=== PATIENT | male | born 1970 | race Caucasian/White ===

== ENCOUNTER → 2017-01-12 | Outpatient (CLI) | payer BC ==
[2017-01-12] VITALS (10 sets, daily range): BP systolic 107–132; BP diastolic 67–89
[~2017-01-12] VITALS: Ht 190.5 cm; Wt 95.3 kg
[~2017-01-12] MED LIST: AMIT25TA9 PO; CELE50CA PO; GABA600T2 PO; HYDROcodone/APAP 5 MG/325 MG (LORTAB) TAB PO PRN; LIDOCAINE 1% INJ 20 ML (XYLOCAINE) VIAL INJ ONE; LIDOCAINE 1% INJ 20 ML (XYLOCAINE) VIAL ONE; MIDAZOLAM 10 MG/2 ML (VERSED) VIAL IVP PRN; MIDAZOLAM 2 MG/2 ML (VERSED) VIAL ONE; fentaNYL INJECTION 100 MCG/2 ML AMP IVP PRN; fentaNYL INJECTION 100 MCG/2 ML AMP ONE
[2017-01-12 08:50] LABS: MEAN PLATELET VOLUME 10.9 FL (7.4-10.4); RED BLOOD COUNT 5.21 10^6/uL (4.35-5.85); RED CELL DISTRIBUTION WIDTH 12.7 % (10.0-14.5); WHITE BLOOD COUNT 5.1 10^3/uL (4.3-11.0)
[2017-01-12 08:58] LABS: PROTHROMBIN TIME PATIENT 12.5 SEC (12.2-14.7)
--- NOTE | 2017-01-12 09:40 | Conscious Sedation/ASA ---
Conscious Sedation Pre-Proced Time Reviewed: 09:00 ASA Class: 2 Airway Mallampati Classification: ([place] appropriate class) I. II. III, IV Lungs Heart ASA score ASA 1: a normal healthy patient ASA 2: a patient with a mild systemic disease (mid diabetes, controlled hypertension, obesity ASA 3: a patient with a severe systemic disease that limits activity (angina , COPD, prior Myocardial infarction) ASA 4: a patient with an incapacitating disease that is a constant threat to life (CHF, renal failure) ASA 5: a moribund patient not expected to survive 24 hrs. (ruptured aneurysm) ASA 6: a declared brain patient whose organs are being harvested. For emergent operations, add the letter E after the classification Grade 2 Sedation Plan: Analgesia Note The patient is an appropriate candidate to undergo the planned procedure, sedation, and anesthesia. The patient immediately re-assessed prior to indication. RENNY OLVERA MD Jan 12, 2017 09:40
--- NOTE | 2017-01-12 11:08 | Diagnostic Imaging Report ---
EXAMINATION: US-guided core biopsy-liver. INDICATION: Hepatitis C. Current history and physical and other medical records are reviewed prior to the procedure. CONSENT: Informed consent was obtained from the patient. The risks, benefits, potential complications and alternatives were reviewed and all questions answered to the patient's satisfaction. The patient's vital signs, cardiac rhythm, and pulse oximetry with observed throughout the procedure by qualified nursing personnel. Sedation/medications: Conscious sedation with Versed and fentanyl administered intravenously. Sedation time is 30 minutes. FINDINGS: Minimal heterogeneity in the liver parenchyma with no focal mass. PROCEDURE: After maximal sterile barrier technique preparation and draping, 1% lidocaine was utilized for local anesthesia. With the patient in left-sided the position, and via right intercostal approach, a 17-gauge guide needle is introduced into the right hepatic lobe under live ultrasound guidance. After confirming adequate positioning with saved ultrasound images, multiple 18 gauge core biopsy specimens were obtained. Gelfoam injected in the tract as the guide needle was removed The patient tolerated the procedure well with no immediate complications. IMPRESSION: Successful US-guided core biopsy of liver parenchyma taken from the right hepatic lobe. Dictated by: Dictated on workstation # [id number]
== END ==
LOC: RAD 07:38
PROVIDERS: ATTEND Surgery Pediatric Surgery
DX: B18.2 Chronic viral hepatitis C (principal)
CPT/HCPCS: 36415; 76942; 85027; 85610; 85730; 88307; 88313

== ENCOUNTER 2018-04-21 12:10 | Emergency (ER) | payer SELFPAY ==
[~2018-04-21] VITALS: Ht 190.5 cm; Wt 98.0 kg
[~2018-04-21 12:10] MED LIST changes: +ACHD5005; +CYCL10TA9; -HYDROcodone/APAP 5 MG/325 MG (LORTAB) TAB PO PRN; -LIDOCAINE 1% INJ 20 ML (XYLOCAINE) VIAL INJ ONE; -LIDOCAINE 1% INJ 20 ML (XYLOCAINE) VIAL ONE; -MIDAZOLAM 10 MG/2 ML (VERSED) VIAL IVP PRN; -MIDAZOLAM 2 MG/2 ML (VERSED) VIAL ONE; +PRD20T; -fentaNYL INJECTION 100 MCG/2 ML AMP IVP PRN; -fentaNYL INJECTION 100 MCG/2 ML AMP ONE
--- OUTSIDE RECORDS SUMMARY | 2018-04-21 12:16 | XMS REPORT ---
Author Author BHARGAVI Mehta Organization [facility] Address [address] [place] [address] Care Team Providers Care Ammonia Refrigeration Worker Name Role Phone BHARGAVI Mehta Unavailable PROBLEMS Type Condition ICD9-CM Code JRU34-DA Code Onset Dates Condition Status SNOMED Code Problem Other chronic pain G89.29 Active 75226488 Problem GERD (gastroesophageal reflux disease) K21.9 Active 512232978 Problem H. pylori infection A04.8 Active 2931758 ALLERGIES No Known Allergies ENCOUNTERS Encounter Location Date Diagnosis [facility] [address] [address] March, [facility] [address] [address] Feb, Low back pain M54.5 and Other chronic pain G89.29 [facility] [address] [address] Feb, Low back pain M54.5 and Other chronic pain G89.29 [facility] [address] [place] [id number] [place] [phone] Oct, Acute nasopharyngitis J00 and Acute non-recurrent maxillary sinusitis J01.00 [facility] [address] [address] Sep, Lumbar pain M54.5 [facility] [address] [address] 05 Jul, 2017 GERD (gastroesophageal reflux disease) K21.9 [facility] [address] [place] [address] Nov, Sore throat J02.9 and Pharyngitis, unspecified etiology J02.9 [facility] [address] [facility] [id number] [place] [address] 14 Apr, 2016 Unspecified abdominal pain R10.9 and Helicobacter pylori ( H. pylori) A04.8 [facility] [address] [facility] [id number] [place] [address] 04 Feb, 2016 H. pylori infection A04.8 and Abdominal pain R10.9 IMMUNIZATIONS No Known Immunizations SOCIAL HISTORY Never Assessed REASON FOR VISIT nausea/diarrhea hx of h pylori JStrasserRN PLAN OF CARE Activity Details Follow Up prn Reason: VITAL SIGNS Height 75 in 2017-08-03 Weight 211.0 lbs 2017-08-03 Temperature 97.8 degrees Fahrenheit 2017-08-03 Heart Rate 64 bpm 2017-08-03 Respiratory Rate 20 2017-08-03 BMI 26.37 kg/m2 2017-08-03 Blood pressure systolic 120 mmHg 2017-08-03 Blood pressure diastolic 80 mmHg 2017-08-03 MEDICATIONS Medication Instructions Dosage Frequency Start Date End Date Duration Status Gabapentin 300 MG Orally Three times a day 1 capsule 8h Active Sucralfate 1 GM Orally QID 1 tablet on an empty stomach before every meal and before bed 6h Jul, Jul, 14 days Active Omeprazole 40 MG Orally Once a day 1 capsule 24h Jul, 30 day(s ) Active Celebrex 200 MG Orally Once a day 1 capsule with food 24h Active Amitriptyline HCl 100 MG Orally Once a day 1 tablet 24h Active RESULTS No Results PROCEDURES Procedure Date Ordered Result Body Site IMMUNOASSAY,INFECTIOUS AGENT Aug 03, 2017 INSTRUCTIONS MEDICATIONS ADMINISTERED No Known Medications MEDICAL (GENERAL) HISTORY Type Description Date Medical History rheumatoid arthritis Surgical History Hep C Hospitalization History Lyme Disease
--- NOTE | 2018-04-21 13:01 | ED Back Pain ---
General Chief Complaint: Trauma-Non Activation Stated Complaint: FELL OFF OF PORCH,BACK PAIN Nursing Triage Note: PT REPORTS FALLING BACKWARDS OFF OF PORCH RAILING ON TO CONCRETE PATIO. PT REPORTS HIT BACK OF HEAD, KNOCKING OFF GLASSES AND HAT, THEN LOWER BACK; DENIES LOC, REPORTS INCREASING STIFFNESS FROM NECK TO COCCYX. PT ABD INTO EXAM ROOM SLOWLY IN VISIBLE DISCOMFORT Nursing Sepsis Screen: No Definite Risk (EDIN MORGAN STUDENT) History of Present Illness Date Seen by Provider: April 21, 2018 Time Seen by Provider: 12:56 Initial Comments The patient is a 47-year-old male who presents to emergency room with low back pain, he reports falling backwards off of his porch railing and landing on a concrete patio. He reports landing flat on the patio hitting his head but denies LOC, dizziness, neck pain, nausea or vomiting, and states that he has significant back pain all the time which she takes amitriptyline, Flexeril, and hydrocodone 3 times a day. He reports taking all 3 of us hydrocodone's without relief of pain and reports that pain in his lower back is worse than normal and sends spasms up his back. Patient denies loss of bowel or bladder, saddle paresthesia. Location: Lumbar Spine Timing/Duration: 1-3 Hours Severity: Mild Pain/Injury Location: Back Radiation: Other (upper back) Method of Injury: Fall Modifying Factors: Improves With Immobilization; Worse With Movement; Improves With Rest Associated Symptoms: muscle spasms, lower back pain (EDIN MORGAN STUDENT) Allergies and Home Medications Allergies Coded Allergies: No Known Drug Allergies (Unverified , 01/12/17) Home Medications Amitriptyline HCl 25 Mg Tablet, 25 MG PO HS, (Reported) Celecoxib 50 Mg Capsule, 50 MG PO BID, (Reported) Gabapentin 600 Mg Tablet, 600 MG PO DAILY, (Reported) Patient Home Medication List Home Medication List Reviewed: Yes (EDIN MORGAN STUDENT) Home Medication List Reviewed: Yes (LUIS ALBERTO GAVIN APRN) Constitutional: see HPI EENTM: no symptoms reported Respiratory: no symptoms reported, see HPI Cardiovascular: see HPI Gastrointestinal: see HPI Genitourinary: see HPI Musculoskeletal: back pain, muscle cramps, muscle twitching Skin: see HPI Psychiatric/Neurological: See HPI (EDIN MORGAN STUDENT) Past Mtfpgkf-Ybgpjr-Rhqqdb Hx Past Med/Social Hx: Reviewed Nursing Past Med/Soc Hx (EDIN MORGAN STUDENT) Patient Social History Alcohol Use: Denies Use Recreational Drug Use: No Smoking Status: Current Everyday Smoker 2nd Hand Smoke Exposure: No Recent Foreign Travel: No Contact w/Someone Who Travel: No Recent Infectious Disease Expo: No Recent Hopitalizations: No (EDIN MORGAN STUDENT) Seasonal Allergies Seasonal Allergies: Yes (EDIN MORGAN STUDENT) Past Medical History Surgeries: Yes (LIVER BX) Respiratory: No Cardiac: No Neurological: No Genitourinary: No Gastrointestinal: Yes (HEPATITIS C) Hepatitis Musculoskeletal: Yes Chronic Back Pain Endocrine: No HEENT: No Cancer: No Psychosocial: No Integumentary: No Blood Disorders: Yes (HEP C) (EDIN MORGAN STUDENT) Family Medical History Reviewed Nursing Family Hx (EDIN MORGAN STUDENT) Physical Exam Vital Signs Vital Signs - First Documented 04/21/18 12:34 Pulse 78 Resp 18 B/P (MAP) 139/89 (106) Pulse Ox 97 O2 Delivery Room Air (LUIS ALBERTO GAVIN APRN) Vital Signs Capillary Refill : Less Than 3 Seconds (EDIN MORGAN STUDENT) General Appearance: No Apparent Distress, WD/WN HEENT: PERRL/EOMI, TMs Normal, Normal ENT Inspection, Pharynx Normal Neck: Full Range of Motion, Normal Inspection, Non Tender, Supple Cardiovascular: Regular Rate, Rhythm, No Edema, No Gallop, No JVD, No Murmur, Normal Peripheral Pulses Respiratory: Chest Non Tender, Lungs Clear, Normal Breath Sounds, No Accessory Muscle Use Gastrointestinal: Normal Bowel Sounds, No Organomegaly, No Pulsatile Mass, Non Tender Back: Normal Inspection, No CVA Tenderness, No Vertebral Tenderness, Decreased Range of Motion (increased pain with range of motion), Muscle Spasm Extremity: Normal Capillary Refill, Normal Inspection, Normal Range of Motion, Non Tender, No Calf Tenderness, No Pedal Edema Neurologic/Psychiatric: Alert, Oriented x3, Normal Mood/Affect Skin: Normal Color, Warm/Dry Lymphatic: No Adenopathy (EDIN MORGAN STUDENT) Progress/Results/Core Measures Results/Orders My Orders Orders - LUIS ALBERTO GAVIN APRN Ct Lumbar Spine Wo (04/21/18 12:55) Ketorolac Injection (Toradol Injection) (04/21/18 13:00) Orphenadrine Injection (Norflex Injectio (04/21/18 13:00) (LUIS ALBERTO GAVIN APRN) Vital Signs/I&O 04/21/18 12:34 Pulse 78 Resp 18 B/P (MAP) 139/89 (106) Pulse Ox 97 O2 Delivery Room Air (LUIS ALBERTO GAVIN APRN) Blood Pressure Mean: 106 Departure Communication (Admissions) 1346- I've seen the patient as well. His pain is midline lumbar spine an exacerbation of his chronic pain. No different than normal only more intense. We will give Toradol and Norflex and discharged home with naproxen. He has hydrocodone and Flexeril. (LUIS ALBERTO GAVIN APRN) Impression Primary Impression: Back strain Additional Impression: Acute exacerbation of chronic low back pain Disposition: HOME, SELF-CARE Condition: Stable Departure-Patient Inst. Decision time for Depature: 13:39 (LUIS ALBERTO GAVIN APRN) Referrals: RG MORELOS MD (PCP/Family) Primary Care Physician Patient Instructions: Low Back Pain (DC) Add. Discharge Instructions: 1.medication as directed. If you require strong pain medication follow-up with your primary care provider 2.All discharge instructions reviewed with patient and/or family. Voiced understanding. Scripts Naproxen (Naprosyn) 500 Mg Tablet 500 MG PO BID, #20 TAB Prov: LUIS ALBERTO GAVIN APRN 04/21/18 EDIN MORGAN STUDENT April 21, 2018 13:01 LUIS ALBERTO GAVIN APRN April 21, 2018 13:44
--- NOTE | 2018-04-21 13:37 | Diagnostic Imaging Report ---
PROCEDURE: CT lumbar spine without contrast. TECHNIQUE: Multiple contiguous axial images were obtained through the lumbar spine without the use of intravenous contrast. Sagittal and coronal reformations were then performed. INDICATION: Fall with numbness and tingling in the lower extremities. Comparison is made with prior CT lumbar spine from 10/07/2017. FINDINGS: Curvature and alignment of the lumbar spine is normal. The vertebral body heights are maintained. No acute fracture is identified. There is some degenerative disc disease L3-L4 level with marginal spurring present. Bony canal appears to be patent at all levels. There continues to be some neural foraminal narrowing bilaterally L5-S1. The paraspinous tissues are unremarkable. IMPRESSION: Stable CT lumbar spine. No acute bony abnormality is detected. Dictated by: Dictated on workstation # [id number]
[2018-04-21] MEDS ORDERED: NAPR-1071 PO (13:46)
[2018-04-21] MEDS: KETOROLAC 60 MG/2 ML VIAL IM ONE (13:57)
[2018-04-21] MEDS: ORPHENADRINE 60 MG/2 ML (NORFLEX) AMP IM ONE (13:57)
[2018-04-21 14:07] VITALS: BP 117/69
== END 2018-04-21 14:10 | disposition home or self-care (01) ==
LOC: EDUNIT# 12:10 → ER 12:12
DX: S39.012A Strain of muscle, fascia and tendon of lower back, initial encounter (principal); M54.5 Low back pain; G89.29 Other chronic pain; B19.20 Unspecified viral hepatitis C without hepatic coma; F17.200 Nicotine dependence, unspecified, uncomplicated; W13.8XXA Fall from, out of or through other building or structure, initial encounter; W22.09XA Striking against other stationary object, initial encounter
CPT/HCPCS: 72131; 96372

== ENCOUNTER 2018-04-26 19:05 | Emergency (ER) | payer SELFPAY ==
[~2018-04-26] VITALS: Ht 190.5 cm; Wt 99.8 kg
[~2018-04-26 19:05] MED LIST changes: +NAPR-1071 PO
[2018-04-26] MEDS ORDERED: KETOROLAC 30 MG/ML VIAL IVP STA (19:20)
[2018-04-26] MEDS ORDERED: ORPHENADRINE 60 MG/2 ML (NORFLEX) AMP IV STA (19:20)
--- NOTE | 2018-04-26 20:08 | Diagnostic Imaging Report ---
PROCEDURE: CT lumbar spine without contrast. TECHNIQUE: Multiple contiguous axial images were obtained through the lumbar spine without the use of intravenous contrast. Sagittal and coronal reformations were then performed. INDICATION: Fall. Back pain There is normal height and alignment of the lumbar vertebral bodies. Disc spaces are well-maintained. There is mild degenerative changes at L3-4. Focal disc herniation is not evident at any level. There is no bony stenosis. There is no fracture or other acute abnormality. IMPRESSION: No acute abnormality is seen with no change from the prior study from 04/21/18. Dictated by: Dictated on workstation # [id number]
--- NOTE | 2018-04-26 20:18 | Diagnostic Imaging Report ---
PROCEDURE: CT pelvis without contrast. TECHNIQUE: Multiple contiguous axial images were obtained through the pelvis without the use of intravenous contrast. Sagittal and coronal reformations were performed. INDICATION: Fall. Pelvic pain There is no fracture, dislocation or other acute bony abnormality. The sacroiliac joints and symphysis pubis are not widened. No free air or free fluid in the pelvis is seen. There is no muscle mass or edema seen. IMPRESSION: Normal CT of the pelvis. Dictated by: Dictated on workstation # [id number]
[2018-04-26] MEDS ORDERED: RX-TRAMADOL 50 MG (ULTRAM) TAB PPK#4 PO STA (20:41)
--- NOTE | 2018-04-26 20:43 | ED Back Pain ---
General Chief Complaint: Back Problems Stated Complaint: BACK PAIN Nursing Triage Note: PT TO ED 7 W/ S.O. FOR C/O LOWER BACK PAIN ONSET X5 DAYS. PT REPORTS FELL FROM HIS PORCH AT THAT TIME, WAS SEEN IN THIS ED, TREATED AT THAT TIME BUT DENIES IMPROVEMENT. BRUISING NOTED TO LOWER BACK AT THIS TIME. NO OTHER C/O VOICED Nursing Sepsis Screen: No Definite Risk Source of Information: Patient, Old Records History of Present Illness Date Seen by Provider: April 26, 2018 Time Seen by Provider: 19:15 Initial Comments PT ARRIVES VIA POV FROM HOME PT WAS SEEN IN ER LAST WEEK 04/21/18 AFTER FALLING BACKWARDS OFF A PORCH AND LANDING ON HIS BACK PT HAD CT OF LUMBAR SPINE WHICH WAS REPORTED NO ACUTE PROCESS. WAS GIVEN INJECTIONS OF TORADOL AND NORFLEX AND SENT HOME WITH RX FOR NAPROXEN PT HAS HISTORY OF CHRONIC BACK PAIN AND TAKES HYDROCODONE 5/325 1 PILL TID, FLEXERIL AND AMITRIPTYLINE FOR THESE PROBLEMS PT STATES PAIN IS GETTING WORSE, AND IS MUCH WORSE WITH COUGHING, SNEEZING, BLOWING NOSE, OR WITH MOVEMENTS AND CANNOT SIT OR LAY ON BACK C/O PAIN RADIATING DOWN RIGHT LEG NO PROBLEMS WITH BOWEL OR BLADDER FUNCTION NO PARESTHESIAS OR MOTOR DEFICITS PCP: DR. MORELOS, NEXT ROUTINE APPOINTMENT 05/02/18 Allergies and Home Medications Allergies Coded Allergies: No Known Drug Allergies (Unverified , 01/12/17) Home Medications Amitriptyline HCl 25 Mg Tablet, 25 MG PO HS, (Reported) Celecoxib 50 Mg Capsule, 50 MG PO BID, (Reported) Gabapentin 600 Mg Tablet, 600 MG PO DAILY, (Reported) Hydrocodone Bit/Acetaminophen 1 Tab Tab, 2 EACH PO Q4H Prescribed by: MARS KAM on 04/26/182045 Methocarbamol 500 Mg Tablet, 500 MG PO QID Prescribed by: MARS KAM on 04/26/182044 Methylprednisolone 4 Mg Tab.ds.pk, 4 MG PO UD Prescribed by: MARS KAM on 04/26/182044 Naproxen 500 Mg Tablet, 500 MG PO BID Prescribed by: LUIS ALBERTO GAVIN on 04/21/18 1346 Tramadol HCl 50 Mg Tablet, 50 MG PO Q4H Prescribed by: MARS KAM on 04/26/182044 Patient Home Medication List Home Medication List Reviewed: Yes Constitutional: no symptoms reported Respiratory: no symptoms reported Cardiovascular: no symptoms reported Gastrointestinal: no symptoms reported Genitourinary: no symptoms reported Musculoskeletal: see HPI Skin: other (BRUISING TO TAILBONE AREA) Psychiatric/Neurological: No Symptoms Reported Past Gnizwgg-Vsbgkq-Uhzelo Hx Patient Social History Alcohol Use: Denies Use Recreational Drug Use: No Smoking Status: Current Everyday Smoker Type Used: Cigarettes 2nd Hand Smoke Exposure: No Recent Foreign Travel: No Contact w/Someone Who Travel: No Recent Infectious Disease Expo: No Recent Hopitalizations: No Physical Abuse: No Sexual Abuse: No Mistreated: No Fear: No Seasonal Allergies Seasonal Allergies: Yes Past Medical History Surgeries: Yes (LIVER BX) Respiratory: No Cardiac: No Neurological: No Genitourinary: No Gastrointestinal: Yes (HEPATITIS C) Hepatitis Musculoskeletal: Yes Chronic Back Pain Endocrine: No HEENT: No Cancer: No Psychosocial: No Nursing Suicide Risk Score: 0 Integumentary: No Blood Disorders: Yes (HEP C) Physical Exam Vital Signs Vital Signs - First Documented 04/26/18 19:11 Temp 98.5 Pulse 98 Resp 20 B/P (MAP) 138/72 (94) Pulse Ox 99 O2 Delivery Room Air Capillary Refill : Less Than 3 Seconds General Appearance: Other (LAYING ON SIDE IN POSITION, MOANING) Neck: Non Tender Cardiovascular: Regular Rate, Rhythm, No Murmur, Normal Peripheral Pulses Respiratory: Normal Breath Sounds Peripheral Pulses: 2+ Dorsalis Pedis (R), 2+ Left Dors-Pedis (L) Gastrointestinal: Non Tender, Soft Back: Other (SIGNIFICANT BRUISING AND TENDERNESS OVER SACRUM AND COCCYX) Extremity: Normal Range of Motion, Non Tender, No Calf Tenderness, No Pedal Edema Neurologic/Psychiatric: Alert, Oriented x3, No Motor/Sensory Deficits, wax coating machine tender II- XII Norm as Tested Skin: Normal Color, Warm/Dry, Ecchymosis, Tattoos/Piercings (EXTENSIVE TATTOOS) Progress/Results/Core Measures Results/Orders My Orders Orders - MARS KAM DO Ct Lumbar Spine Wo (04/26/18 19:20) Ketorolac Injection (Toradol Injection) (04/26/18 19:20) Orphenadrine Injection (Norflex Injectio (04/26/18 19:20) Ct Pelvis Wo (04/26/18 19:20) Saline Lock/Iv-Start (04/26/18 19:22) Rx-Tramadol Hcl (Rx-Ultram) (04/26/18 20:41) Methylprednisolone Sod Succ (Solu-Medrol (04/26/18 20:45) Rx-Tramadol Hcl (Rx-Ultram) (04/26/18 21:01) Medications Given in ED Current Medications Medications Dose Ordered Sig/Estefany Route Start Time Stop Time Status Last Admin Dose Admin Methylprednisolone Sodium Succinate 125 mg ONCE ONCE IVP 04/26/18 20:45 04/26/18 21:37 DC 04/26/18 21:09 125 MG Vital Signs/I&O 04/26/18 19:11 Temp 98.5 Pulse 98 Resp 20 B/P (MAP) 138/72 (94) Pulse Ox 99 O2 Delivery Room Air Blood Pressure Mean: [address] LUMBAR SPINE AND PELVIS--NO ACUTE PROCESS, MILD DEGENERATIVE CHANGES AT L3-L4 --CHRONIC/STABLE--PER RADIOLOGIST REPORT @ 2035 Reviewed: Reviewed by Me Departure Impression Primary Impression: Sacral contusion Additional Impression: Exacerbation of chronic back pain Disposition: HOME, SELF-CARE Condition: Stable Departure-Patient Inst. Referrals: RG MORELOS MD (PCP/Family) Primary Care Physician Patient Instructions: Contusion (DC), MANAGING YOUR CHRONIC PAIN, Upper Back Pain (DC) Add. Discharge Instructions: ICE TO AREA AT 20 MINUTE INTERVALS INCREASE YOUR HYDROCODONE TO 2 PILLS 3 TIMES A DAY STOP FLEXERIL WHILE ON ROBAXIN FOLLOW UP WITH DR. MORELOS 05/02/18 SCHEDULED, OR SOONER IF WORSE All discharge instructions reviewed with patient and/or family. Voiced understanding. Scripts Hydrocodone Bit/Acetaminophen (Hydrocodone/Acetaminophen 5/325mg Tablet) 1 Tab Tab 2 EACH PO Q4H, #20 TAB Prov: NEGIN,MARS K DO 04/26/18 Tramadol HCl (Ultram) 50 Mg Tablet 50 MG PO Q4H, #20 TAB Prov: NEGIN,MARS K DO 04/26/18 Methocarbamol (Robaxin) 500 Mg Tablet 500 MG PO QID for Muscle Spasms, #20 TAB Prov: NEGINMARS K DO 04/26/18 Methylprednisolone (Medrol) 4 Mg Tab.ds.pk 4 MG PO UD, #1 PKG Prov: NEGIN,MARS K DO 04/26/18 MARS KAM DO April 26, 2018 20:43
[2018-04-26] MEDS ORDERED: methylPREDNISolone 125 MG (Solu-MEDROL) VIAL IVP ONE (20:45)
[2018-04-26] MEDS ORDERED: METH500T PO (20:45)
[2018-04-26] MEDS ORDERED: TRAM-42 PO (20:45)
[2018-04-26] MEDS ORDERED: METH4TAB PO (20:45)
[2018-04-26] MEDS ORDERED: ACHD5005 PO (20:46)
[2018-04-26] MEDS ORDERED: RX-TRAMADOL 50 MG (ULTRAM) TAB PPK#4 PO ONE (21:01)
[2018-04-26 21:22] VITALS: BP 131/78
== END 2018-04-26 21:22 | disposition home or self-care (01) ==
LOC: EDUNIT# 19:05 → ER 19:06
DX: S30.0XXA Contusion of lower back and pelvis, initial encounter (principal); G89.29 Other chronic pain; B19.20 Unspecified viral hepatitis C without hepatic coma; F17.210 Nicotine dependence, cigarettes, uncomplicated; Z79.52 Long term (current) use of systemic steroids; W13.8XXA Fall from, out of or through other building or structure, initial encounter
CPT/HCPCS: 72131; 72192; 96374; 96375

== ENCOUNTER 2018-11-30 19:53 | Emergency (ER) | payer SELFPAY ==
[~2018-11-30] VITALS: Ht 190.5 cm; Wt 99.8 kg
[~2018-11-30 19:53] MED LIST changes: +ACHD5005 PO; +METH4TAB PO; +METH500T PO; +TRAM-42 PO
--- OUTSIDE RECORDS SUMMARY | 2018-11-30 19:58 | XMS REPORT ---
Author Author RG MORELOS [facility] Address [address] [place] [address] Care Team Providers Care Ethylbenzene Converter Helper Name Role Phone RG MORELOS Unavailable PROBLEMS Type Condition ICD9-CM Code ZQM02-CF Code Onset Dates Condition Status SNOMED Code Problem Arthritis M19.90 Active 9485818 Problem Other chronic pain G89.29 Active 32065112 Problem GERD (gastroesophageal reflux disease) K21.9 Active 657486643 ALLERGIES No Information ENCOUNTERS Encounter Location Date Diagnosis [place] [address] [place] [address] Aug, Lumbar contusion, initial encounter S30.0XXA and Arthritis M19.90 [place] [address] [address] Aug, Arthritis M19.90 [place] [address] [address] Jun, Arthritis M19.90 [place] [address] [address] Jun, Arthritis M19.90 ; Lumbar contusion, initial encounter S30.0XXA and Other chronic pain G89.29 [facility] [address] [address] May, Arthritis M19.90 [place] [address] [address] Apr, Encounter for medication monitoring Z51.81 ; Arthritis M19.90 and Lumbar contusion, initial encounter S30.0XXA [place] [address] [address] March, Arthritis M19.90 [place] [address] [place] [id number] [place] [address] March, [facility] [address] [address] March, [facility] [address] [place] [id number] [place] [address] March, Arthritis M19.90 [facility] [address] [address] Feb, Low back pain M54.5 and Other chronic pain G89.29 [facility] [address] [place] [address] Feb, Low back pain M54.5 and Other chronic pain G89.29 [facility] [address] [place] [id number] [place] [address] Oct, Acute nasopharyngitis J00 and Acute non-recurrent maxillary sinusitis J01.00 [facility] [address] [place], [place] [id number] [place] [address] Sep, Lumbar pain M54.5 [facility] [place] [id number] [place] [phone] 05 Jul, 2017 GERD (gastroesophageal reflux disease) K21.9 [facility] [place] [id number] [place] [address] Nov, Sore throat J02.9 and Pharyngitis, unspecified etiology J02.9 [facility] [address] [place] [id number] [place] [address] 14 Apr, 2016 Unspecified abdominal pain R10.9 and Helicobacter pylori ( H. pylori) A04.8 [facility] [address] [place], [place] [id number] [place] [phone] 04 Feb, 2016 H. pylori infection A04.8 and Abdominal pain R10.9 IMMUNIZATIONS No Known Immunizations SOCIAL HISTORY Never Assessed REASON FOR VISIT Controlled Med Refill 09/29 PLAN OF CARE VITAL SIGNS MEDICATIONS Medication Instructions Dosage Frequency Start Date End Date Duration Status [place] 5-325 MG Orally 3 times a day 1 tablet as needed 8h Sep, 28 days Active RESULTS No Results PROCEDURES No Known procedures INSTRUCTIONS MEDICATIONS ADMINISTERED No Known Medications MEDICAL (GENERAL) HISTORY Type Description Date Medical History rheumatoid arthritis Medical History lyme disease Surgical History liver biopsy 12/2016 Hospitalization History Lyme Disease
--- OUTSIDE RECORDS SUMMARY | 2018-11-30 19:58 | XMS REPORT ---
Author Author RG MORELOS [facility] Address [address] [place] [address] Care Team Providers Care Director Quality Assurance Name Role Phone RG MORELOS Unavailable PROBLEMS Type Condition ICD9-CM Code CLJ38-SV Code Onset Dates Condition Status SNOMED Code Problem Arthritis M19.90 Active 7783394 Problem Other chronic pain G89.29 Active 36364301 Problem GERD (gastroesophageal reflux disease) K21.9 Active 067340566 ALLERGIES No Information ENCOUNTERS Encounter Location Date Diagnosis [place] [address] [address] Jun, Arthritis M19.90 [place] [address] [address] Jun, Arthritis M19.90 ; Lumbar contusion, initial encounter S30.0XXA and Other chronic pain G89.29 [facility] [address] [address] May, Arthritis M19.90 [place] [address] [address] Apr, Encounter for medication monitoring Z51.81 ; Arthritis M19.90 and Lumbar contusion, initial encounter S30.0XXA [facility] [address] [address] March, Arthritis M19.90 [facility] [address] [address] March, [facility] [address] [address] March, [facility] [address] [address] March, Arthritis M19.90 [facility] [address] [place] [id number] [place] [address] Feb, Low back pain M54.5 and Other chronic pain G89.29 [facility] [address] [place] [id number] [place] [address] Feb, Low back pain M54.5 and Other chronic pain G89.29 [facility] [address] [place] [id number] [place] [address] Oct, Acute nasopharyngitis J00 and Acute non-recurrent maxillary sinusitis J01.00 [facility] [address] [place] [id number] [place] [address] Sep, Lumbar pain M54.5 [facility] [place] [id number] [place] [address] Jul, GERD (gastroesophageal reflux disease) K21.9 [facility] [address] [place] [id number] [place] [address] Nov, Sore throat J02.9 and Pharyngitis, unspecified etiology J02.9 [facility] [address] [place] [id number] [place] [address] Apr, Unspecified abdominal pain R10.9 and Helicobacter pylori ( H. pylori) A04.8 [facility] [address] [place] [id number] [place] [address] Feb, H. pylori infection A04.8 and Abdominal pain R10.9 IMMUNIZATIONS No Known Immunizations SOCIAL HISTORY Never Assessed REASON FOR VISIT Hydrocodone / PLAN OF CARE VITAL SIGNS MEDICATIONS Medication Instructions Dosage Frequency Start Date End Date Duration Status Buford 5-325 MG Orally 3 times a day 1 tablet as needed 8h May, Active RESULTS No Results PROCEDURES No Known procedures INSTRUCTIONS MEDICATIONS ADMINISTERED No Known Medications MEDICAL (GENERAL) HISTORY Type Description Date Medical History rheumatoid arthritis Medical History lyme disease Surgical History liver biopsy 12/2016 Hospitalization History Lyme Disease
--- OUTSIDE RECORDS SUMMARY | 2018-11-30 19:58 | XMS REPORT ---
Author Author RG MORELOS [facility] Address [address] [place] [address] Care Team Providers Care Increment Manager Name Role Phone RG MORELOS Unavailable PROBLEMS Type Condition ICD9-CM Code ADB11-VE Code Onset Dates Condition Status SNOMED Code Problem Arthritis M19.90 Active 2333616 Problem Other chronic pain G89.29 Active 78839227 Problem GERD (gastroesophageal reflux disease) K21.9 Active 734203104 ALLERGIES No Information ENCOUNTERS Encounter Location Date Diagnosis [place] [address] [address] Sep, Arthritis M19.90 [facility] [address] [place] [address] Aug, Lumbar contusion, initial encounter S30.0XXA and Arthritis M19.90 [facility] [address] [address] Aug, Arthritis M19.90 [place] [address] [address] Jun, Arthritis M19.90 [facility] [address] [address] Jun, Arthritis M19.90 ; Lumbar contusion, initial encounter S30.0XXA and Other chronic pain G89.29 [facility] [address] [address] May, Arthritis M19.90 [facility] [address] [address] Apr, Encounter for medication monitoring Z51.81 ; Arthritis M19.90 and Lumbar contusion, initial encounter S30.0XXA [facility] [address] [place] [id number] [place] [address] March, Arthritis M19.90 [facility] [address] [address] March, [facility] [address] [address] March, [facility] [address] [address] March, Arthritis M19.90 [facility] [address] [place] [address] Feb, Low back pain M54.5 and Other chronic pain G89.29 [facility] [address] [place] [address] Feb, Low back pain M54.5 and Other chronic pain G89.29 [facility] [address] [place] [address] Oct, Acute nasopharyngitis J00 and Acute non-recurrent maxillary sinusitis J01.00 [facility] [address] [place] [address]9736 -7978 Sep, Lumbar pain M54.5 [facility] [address] [address] 05 Jul, 2017 GERD (gastroesophageal reflux disease) K21.9 [facility] [address] [place] [id number] [place] [address] Nov, Sore throat J02.9 and Pharyngitis, unspecified etiology J02.9 [facility] [address] [place] [address]51 [address]80[address] 14 Apr, 2016 Unspecified abdominal pain R10.9 and Helicobacter pylori ( H. pylori) A04.8 [facility] [address] [place] [address] Feb, H. pylori infection A04.8 and Abdominal pain R10.9 IMMUNIZATIONS No Known Immunizations SOCIAL HISTORY Never Assessed REASON FOR VISIT Controlled Med Refill 10/27 PLAN OF CARE VITAL SIGNS MEDICATIONS Medication Instructions Dosage Frequency Start Date End Date Duration Status Jackson 5-325 MG Orally 3 times a day 1 tablet as needed Sep, 28 days Active RESULTS No Results PROCEDURES No Known procedures INSTRUCTIONS MEDICATIONS ADMINISTERED No Known Medications MEDICAL (GENERAL) HISTORY Type Description Date Medical History rheumatoid arthritis Medical History lyme disease Surgical History liver biopsy 12/2016 Hospitalization History Lyme Disease
--- OUTSIDE RECORDS SUMMARY | 2018-11-30 19:58 | XMS REPORT ---
Author Author RG MORELOS [facility] Address [address] [place] [address] Care Team Providers Care Director Selection And Administration Name Role Phone RG MORELOS Unavailable PROBLEMS Type Condition ICD9-CM Code CGZ20-DX Code Onset Dates Condition Status SNOMED Code Problem Arthritis M19.90 Active 7888925 Problem Other chronic pain G89.29 Active 33816228 Problem GERD (gastroesophageal reflux disease) K21.9 Active 648085321 ALLERGIES No Information ENCOUNTERS Encounter Location Date Diagnosis [place] [address] [address] Aug, Arthritis M19.90 [place] [address] [address] Jun, Arthritis M19.90 [facility] [address] [address] Jun, Arthritis M19.90 ; Lumbar contusion, initial encounter S30.0XXA and Other chronic pain G89.29 [place] [address] [place] [id number] [place] [address] May, Arthritis M19.90 [facility] [address] [place] [id number] [place] [address] Apr, Encounter for medication monitoring Z51.81 ; Arthritis M19.90 and Lumbar contusion, initial encounter S30.0XXA [place] [address] [address] March, Arthritis M19.90 [place] [address] [place] [id number] [place] [address] March, [facility] [address] [place] [address] March, [facility] [address] [place] [id number] [place] [address] March, Arthritis M19.90 [facility] [address] [place] [address] Feb, Low back pain M54.5 and Other chronic pain G89.29 [facility] [address] [place] [address]2422 [address] Feb, Low back pain M54.5 and Other chronic pain G89.29 [facility] [address] [address] Oct, Acute nasopharyngitis J00 and Acute non-recurrent maxillary sinusitis J01.00 [facility] [address] [address] Sep, Lumbar pain M54.5 [facility] [address] [address] Jul, GERD (gastroesophageal reflux disease) K21.9 [facility] [address] [address] Nov, Sore throat J02.9 and Pharyngitis, unspecified etiology J02.9 [facility] [address] [address] Apr, Unspecified abdominal pain R10.9 and Helicobacter pylori ( H. pylori) A04.8 [facility] [place] [id number] [place] [address] Feb, H. pylori infection A04.8 and Abdominal pain R10.9 IMMUNIZATIONS No Known Immunizations SOCIAL HISTORY Never Assessed REASON FOR VISIT Controlled Med Refill 09/01 PLAN OF CARE VITAL SIGNS MEDICATIONS Medication Instructions Dosage Frequency Start Date End Date Duration Status Rome 5-325 MG Orally 3 times a day 1 tablet as needed 8h Aug, Active RESULTS No Results PROCEDURES No Known procedures INSTRUCTIONS MEDICATIONS ADMINISTERED No Known Medications MEDICAL (GENERAL) HISTORY Type Description Date Medical History rheumatoid arthritis Medical History lyme disease Surgical History liver biopsy 12/2016 Hospitalization History Lyme Disease
--- OUTSIDE RECORDS SUMMARY | 2018-11-30 19:58 | XMS REPORT ---
Author Author RG MORELOS [facility] Address [address] [place] [address] Care Team Providers Care Electronic Die Maker Name Role Phone RG MORELOS Unavailable PROBLEMS Type Condition ICD9-CM Code YAV00-FA Code Onset Dates Condition Status SNOMED Code Problem Arthritis M19.90 Active 7651475 Problem Other chronic pain G89.29 Active 89822347 Problem GERD (gastroesophageal reflux disease) K21.9 Active 697694422 ALLERGIES No Information ENCOUNTERS Encounter Location Date Diagnosis [facility] [address] [address] Jun, Arthritis M19.90 ; Lumbar contusion, initial encounter S30.0XXA and Other chronic pain G89.29 [facility] [address] [place] [id number] [place] [address] May, Arthritis M19.90 [facility] [address] [place] [id number] [place] [address]656[address] Apr, Encounter for medication monitoring Z51.81 ; Arthritis M19.90 and Lumbar contusion, initial encounter S30.0XXA [facility] [address] [place] [id number] [place] [address]285- [address] March, Arthritis M19.90 [facility] [address] [place] [id number] [place] [address]208[address] March, [facility] [address] [address] March, [facility] [address] [place] [id number] [place] [address]5768- [address]073 March, Arthritis M19.90 [facility] [address] [address] Feb, Low back pain M54.5 and Other chronic pain G89.29 [facility] [place] [address] [place] [id number] [place] [address]6736 -[address]395 Feb, Low back pain M54.5 and Other chronic pain G89.29 [facility] [address] [place] [id number] [place] [address] Oct, Acute nasopharyngitis J00 and Acute non-recurrent maxillary sinusitis J01.00 [facility] [address] [place] [id number] [place] [address]395 -[address]762 Sep, Lumbar pain M54.5 [facility] [address] [place] [id number] [place] [address] 30985 -20[address] 05 Jul, 2017 GERD (gastroesophageal reflux disease) K21.9 [facility] [address] [place] [id number] [place] [address]187 -[address]83 Nov, Sore throat J02.9 and Pharyngitis, unspecified etiology J02.9 [facility] [address] [place] [id number] [place] [address] 62825 -3424 14 Apr, 2016 Unspecified abdominal pain R10.9 and Helicobacter pylori ( H. pylori) A04.8 [facility] [address] [place] [address] [place] [address]9727 -[address]148 Feb, H. pylori infection A04.8 and Abdominal pain R10.9 IMMUNIZATIONS No Known Immunizations SOCIAL HISTORY Never Assessed REASON FOR VISIT Refill request PLAN OF CARE VITAL SIGNS MEDICATIONS Unknown Medications RESULTS No Results PROCEDURES No Known procedures INSTRUCTIONS MEDICATIONS ADMINISTERED No Known Medications MEDICAL (GENERAL) HISTORY Type Description Date Medical History rheumatoid arthritis Medical History lyme disease Surgical History liver biopsy 12/2016 Hospitalization History Lyme Disease
--- OUTSIDE RECORDS SUMMARY | 2018-11-30 19:58 | XMS REPORT ---
Author Author RG MORELOS [facility] Address [address] [place] [address] Care Team Providers Care Senior Electrical Estimator Name Role Phone RG MORELOS Unavailable PROBLEMS Type Condition ICD9-CM Code ETN10-FZ Code Onset Dates Condition Status SNOMED Code Problem Arthritis M19.90 Active 7703592 Problem Other chronic pain G89.29 Active 10993968 Problem GERD (gastroesophageal reflux disease) K21.9 Active 449668949 ALLERGIES No Information ENCOUNTERS Encounter Location Date Diagnosis [facility] [address] [address] Jun, Arthritis M19.90 ; Lumbar contusion, initial encounter S30.0XXA and Other chronic pain G89.29 [facility] [address] [place] [id number] [place] [address] May, Arthritis M19.90 [facility] [address] [place] [id number] [place] [address] 85350- [address]95 Apr, Encounter for medication monitoring Z51.81 ; Arthritis M19.90 and Lumbar contusion, initial encounter S30.0XXA [facility] [address] [place] [id number] [place] [address]70- [address] March, Arthritis M19.90 [facility] [address] [place] [id number] [place] [address] 21[address]- 47[address] March, [facility] [address] [address] March, [facility] [address] [place] [id number] [place] [address] 12763[address] 6538 March, Arthritis M19.90 [facility] [address] [address] Feb, Low back pain M54.5 and Other chronic pain G89.29 [facility] [address] [place], [place] [id number] [place] [address]368 [address] Feb, Low back pain M54.5 and Other chronic pain G89.29 [facility] [address] [place] [address] [place] [address]70 [address] Oct, Acute nasopharyngitis J00 and Acute non-recurrent maxillary sinusitis J01.00 [facility] [address] [place] [id number] [place] [address] Sep, Lumbar pain M54.5 [facility] [address] [place] [id number] [place] [address] 90427 [address] 05 Jul, 2017 GERD (gastroesophageal reflux disease) K21.9 [facility] [address] [place] [id number] [place] [address] 35[address] -[address]83 Nov, Sore throat J02.9 and Pharyngitis, unspecified etiology J02.9 [facility] [address] [place] [id number] [place] [address] 48045 [address] 14 Apr, 2016 Unspecified abdominal pain R10.9 and Helicobacter pylori ( H. pylori) A04.8 [facility] [address] [place] [id number] [place] [address] 53795 -[address]68 Feb, H. pylori infection A04.8 and Abdominal pain R10.9 IMMUNIZATIONS No Known Immunizations SOCIAL HISTORY Never Assessed REASON FOR VISIT Refill request PLAN OF CARE VITAL SIGNS MEDICATIONS Medication Instructions Dosage Frequency Start Date End Date Duration Status Alpine 5-325 MG Orally 3 times a day 1 tablet as needed 8h March, Active RESULTS No Results PROCEDURES No Known procedures INSTRUCTIONS MEDICATIONS ADMINISTERED No Known Medications MEDICAL (GENERAL) HISTORY Type Description Date Medical History rheumatoid arthritis Medical History lyme disease Surgical History liver biopsy 12/2016 Hospitalization History Lyme Disease
--- OUTSIDE RECORDS SUMMARY | 2018-11-30 19:58 | XMS REPORT ---
Author Author RG MORELOS [facility] Address [address] [place] [address] Care Team Providers Care Metal Pickling Equipment Operator Name Role Phone RG MORELOS Unavailable PROBLEMS Type Condition ICD9-CM Code TFI24-SX Code Onset Dates Condition Status SNOMED Code Problem Arthritis M19.90 Active 5682356 Problem Other chronic pain G89.29 Active 18923517 Problem GERD (gastroesophageal reflux disease) K21.9 Active 023753257 ALLERGIES No Known Allergies ENCOUNTERS Encounter Location Date Diagnosis [facility] [place] [address] [address] Jun, Arthritis M19.90 ; Lumbar contusion, initial encounter S30.0XXA and Other chronic pain G89.29 [facility] [place] [address] [place] [id number] [place] [address] May, Arthritis M19.90 [facility] [place] [address] [place] [id number] [place] [address]68[address] Apr, Encounter for medication monitoring Z51.81 ; Arthritis M19.90 and Lumbar contusion, initial encounter S30.0XXA [facility] [place] [address] [place] [id number] [place] [address]891[address] March, Arthritis M19.90 [facility] [place] [address] [place] [id number] [place] [address] 42791- 7069 March, [facility] [place] [address] [address] March, [facility] [place] [address] [place] [id number] [place] [address]992- [address] March, Arthritis M19.90 [facility] [address] [place] [id number] [place] [address]150 -[address] Feb, Low back pain M54.5 and Other chronic pain G89.29 [facility] [address] [place], [place] [id number] [place] [address] 46356 -6454 Feb, Low back pain M54.5 and Other chronic pain G89.29 [facility] [address] [place] [address]74 -[address]502 Oct, Acute nasopharyngitis J00 and Acute non-recurrent maxillary sinusitis J01.00 [facility] [address] [place] [address] 34889 -1045 08 Sep, 2017 Lumbar pain M54.5 [facility] [address] [place], [place] [id number] [place] [address] 86096 -8918 05 Jul, 2017 GERD (gastroesophageal reflux disease) K21.9 [facility] [address] [place], [place] [id number] [place] [address] 84994 -6710 Nov, Sore throat J02.9 and Pharyngitis, unspecified etiology J02.9 [facility] [address] [place], [place] [id number] [place] [address] 28278 -2014 14 Apr, 2016 Unspecified abdominal pain R10.9 and Helicobacter pylori ( H. pylori) A04.8 [facility] [place] [id number] [place] [address]104 -[address]44 Feb, H. pylori infection A04.8 and Abdominal pain R10.9 IMMUNIZATIONS No Known Immunizations SOCIAL HISTORY Never Assessed REASON FOR VISIT Pain management (chronic) -Oliverio CLOUD , _update contract, in-house UDS for baseline, PT reports he fell two weeks ago, PT notes he has been to the ER twice since and is not doing well with the pain/discomfort. -Oliverio CLOUD PLAN OF CARE Activity Details Follow Up 3 Months Reason: VITAL SIGNS Height 74.5 in 2018-05-02 Weight 221.0 lbs 2018-05-02 Temperature 98.9 degrees Fahrenheit 2018-05-02 Heart Rate 78 bpm 2018-05-02 Respiratory Rate 18 2018-05-02 BMI 27.99 kg/m2 2018-05-02 Blood pressure systolic 128 mmHg 2018-05-02 Blood pressure diastolic 70 mmHg 2018-05-02 MEDICATIONS Medication Instructions Dosage Frequency Start Date End Date Duration Status Omeprazole 40 MG Orally Once a day 1 capsule 24h Jul, 30 day(s ) Not-Taking Omeprazole 20 mg Orally twice a day 1 tablet 12h 14 Apr, 2016 30 day(s ) Not-Taking Omeprazole 20 mg Orally twice a day 1 capsules 12h Feb, 30 day( s) Not-Taking Tramadol HCl 50 MG Orally every 6 hrs 1 tablet 6h Active Amitriptyline HCl 100 mg Orally Once a day 1 tablet 24h Active BC Fast Pain Relief Arthritis 1000-65 MG Orally every 6 hrs 1 packet 6h Not-Taking Celebrex 200 mg Orally Once a day 1 capsule with food 24h Apr, 14 days Active Cyclobenzaprine HCl 5 MG Orally at bedtime 1 tablet as needed Sep, Active Aleve 220 MG Orally every 12 hrs 1 tablet as needed 12h Not-Taking Mcfarlan 5-325 MG Orally 3 times a day 1 tablet as needed 8h Apr, Active Gabapentin 300 MG Orally Three times a day 1 capsule 8h Active RESULTS Name Result Date Reference Range URINE DRUG SCREEN (IN HOUSE) 2018-05-02 Lot # [id number] Exp date 07/2019 Control + COCAINE Negative AMPH Negative MTD Negative THC Negative OPIATE POSITIVE BENZO POSITIVE PCP Negative BAR Negative OXY POSITIVE MAMP Negative BUP NA MDMA TCA PROCEDURES Procedure Date Ordered Result Body Site DRUG TEST PRSMV DIR OPT OBS May 02, 2018 INSTRUCTIONS MEDICATIONS ADMINISTERED No Known Medications MEDICAL (GENERAL) HISTORY Type Description Date Medical History rheumatoid arthritis Medical History lyme disease Surgical History liver biopsy 12/2016 Hospitalization History Lyme Disease
--- OUTSIDE RECORDS SUMMARY | 2018-11-30 19:58 | XMS REPORT ---
Author Author RG MORELOS [facility] Address [address] [place] [address] Care Team Providers Care Kinder Teacher Name Role Phone RG MORELOS Unavailable PROBLEMS Type Condition ICD9-CM Code ZIS50-AB Code Onset Dates Condition Status SNOMED Code Problem Arthritis M19.90 Active 6491612 Problem Other chronic pain G89.29 Active 54915449 Problem GERD (gastroesophageal reflux disease) K21.9 Active 538779471 ALLERGIES No Information ENCOUNTERS Encounter Location Date Diagnosis [place] [id number] [address] Jun, Arthritis M19.90 [place] [address] [address] Jun, Arthritis M19.90 ; Lumbar contusion, initial encounter S30.0XXA and Other chronic pain G89.29 [facility] [address] [address] May, Arthritis M19.90 [place] [address] [address] Apr, Encounter for medication monitoring Z51.81 ; Arthritis M19.90 and Lumbar contusion, initial encounter S30.0XXA [facility] [address] [address] March, Arthritis M19.90 [place] [address] [address] March, [facility] [address] [address] March, [facility] [address] [address] March, Arthritis M19.90 [facility] [address] [place] [id number] [place] [address] Feb, Low back pain M54.5 and Other chronic pain G89.29 [facility] [address] [place] [id number] [place] [address] Feb, Low back pain M54.5 and Other chronic pain G89.29 [facility] [address] [place] [id number] [place] [address] Oct, Acute nasopharyngitis J00 and Acute non-recurrent maxillary sinusitis J01.00 [facility] [address] [place] [id number] [place] [address] Sep, Lumbar pain M54.5 [facility] [place] [id number] [place] [address] Jul, GERD (gastroesophageal reflux disease) K21.9 [facility] [address] [place] [id number] [place] [address] Nov, Sore throat J02.9 and Pharyngitis, unspecified etiology J02.9 [facility] [address] [place] [id number] [place] [address] Apr, Unspecified abdominal pain R10.9 and Helicobacter pylori ( H. pylori) A04.8 [facility] [address] [place] [id number] [place] [address] Feb, H. pylori infection A04.8 and Abdominal pain R10.9 IMMUNIZATIONS No Known Immunizations SOCIAL HISTORY Never Assessed REASON FOR VISIT Controlled Med Refill PLAN OF CARE VITAL SIGNS MEDICATIONS Medication Instructions Dosage Frequency Start Date End Date Duration Status Mclaughlin 5-325 MG Orally 3 times a day 1 tablet as needed Jun, Active RESULTS No Results PROCEDURES No Known procedures INSTRUCTIONS MEDICATIONS ADMINISTERED No Known Medications MEDICAL (GENERAL) HISTORY Type Description Date Medical History rheumatoid arthritis Medical History lyme disease Surgical History liver biopsy 12/2016 Hospitalization History Lyme Disease
--- OUTSIDE RECORDS SUMMARY | 2018-11-30 19:59 | XMS REPORT ---
Author Author RG MORELOS [facility] Address [address] [place] [address] Care Team Providers Care Distillery Laborer Name Role Phone RG MORELOS Unavailable PROBLEMS Type Condition ICD9-CM Code MXY27-BK Code Onset Dates Condition Status SNOMED Code Problem Arthritis M19.90 Active 3611289 Problem Other chronic pain G89.29 Active 26905939 Problem GERD (gastroesophageal reflux disease) K21.9 Active 536294603 ALLERGIES No Information ENCOUNTERS Encounter Location Date Diagnosis [facility] [address] [address] Jun, Arthritis M19.90 ; Lumbar contusion, initial encounter S30.0XXA and Other chronic pain G89.29 [facility] [address] [place] [id number] [place] [address] May, Arthritis M19.90 [facility] [address] [place] [id number] [place] [address] Apr, Encounter for medication monitoring Z51.81 ; Arthritis M19.90 and Lumbar contusion, initial encounter S30.0XXA [facility] [address] [place] [id number] [place] [address] March, Arthritis M19.90 [facility] [address] [place] [id number] [place] [address] March, [facility] [address] [address] March, [facility] [address] [place] [id number] [place] [address] March, Arthritis M19.90 [facility] [address] [address] Feb, Low back pain M54.5 and Other chronic pain G89.29 [facility] [address] [place] [id number] [place] [address] Feb, Low back pain M54.5 and Other chronic pain G89.29 [facility] [address] [place] [id number] [place] [address] Oct, Acute nasopharyngitis J00 and Acute non-recurrent maxillary sinusitis J01.00 [facility] [address] [place] [id number] [place] [address] Sep, Lumbar pain M54.5 [facility] [address] [place] [id number] [place] [address] 05 Jul, 2017 GERD (gastroesophageal reflux disease) K21.9 [facility] [place] [id number] [place] [address] Nov, Sore throat J02.9 and Pharyngitis, unspecified etiology J02.9 [facility] [address] [place] [id number] [place] [address] Apr, Unspecified abdominal pain R10.9 and Helicobacter pylori ( H. pylori) A04.8 [facility] [address] [place] [id number] [place] [address] Feb, H. pylori infection A04.8 and Abdominal pain R10.9 IMMUNIZATIONS No Known Immunizations SOCIAL HISTORY Never Assessed REASON FOR VISIT PLAN OF CARE VITAL SIGNS MEDICATIONS Medication Instructions Dosage Frequency Start Date End Date Duration Status Amitriptyline HCl 100 mg Orally Once a day 1 tablet 24h Active Gabapentin 300 MG Orally Three times a day 1 capsule 8h Active RESULTS No Results PROCEDURES No Known procedures INSTRUCTIONS MEDICATIONS ADMINISTERED No Known Medications MEDICAL (GENERAL) HISTORY Type Description Date Medical History rheumatoid arthritis Medical History lyme disease Surgical History liver biopsy 12/2016 Hospitalization History Lyme Disease
--- OUTSIDE RECORDS SUMMARY | 2018-11-30 19:59 | XMS REPORT ---
Author Author RG MORELOS [facility] Address [address] [place] [address] Care Team Providers Care Distribution Operations Supervisor Name Role Phone RG MORELOS Unavailable PROBLEMS Type Condition ICD9-CM Code CTC44-LQ Code Onset Dates Condition Status SNOMED Code Problem Arthritis M19.90 Active 7401191 Problem Other chronic pain G89.29 Active 36708626 Problem GERD (gastroesophageal reflux disease) K21.9 Active 292533715 ALLERGIES No Known Allergies ENCOUNTERS Encounter Location Date Diagnosis [facility] [address] [address] Jun, Arthritis M19.90 ; Lumbar contusion, initial encounter S30.0XXA and Other chronic pain G89.29 [facility] [address] [place] [id number] [place] [address] May, Arthritis M19.90 [facility] [address] [place] [id number] [place] [address] Apr, Encounter for medication monitoring Z51.81 ; Arthritis M19.90 and Lumbar contusion, initial encounter S30.0XXA [facility] [address] [place] [id number] [place] [address] March, Arthritis M19.90 [facility] [address] [place] [id number] [place] [address] March, [facility] [address] [address] March, [facility] [address] [place] [id number] [place] [address] March, Arthritis M19.90 [facility] [address] [place] [id number] [place] [address] Feb, Low back pain M54.5 and Other chronic pain G89.29 [facility] [address] [place], [place] [id number] [place] [address] Feb, Low back pain M54.5 and Other chronic pain G89.29 [facility] [address] [place] [address] Oct, Acute nasopharyngitis J00 and Acute non-recurrent maxillary sinusitis J01.00 [facility] [address] [place] [phone] 08 Sep, 2017 Lumbar pain M54.5 [facility] [address] [place] [id number] [place] [address]81 [phone] 05 Jul, 2017 GERD (gastroesophageal reflux disease) K21.9 [facility] [address] [place] [id number] [place] [address] Nov, Sore throat J02.9 and Pharyngitis, unspecified etiology J02.9 [facility] [address] [place] [id number] [place] [address]42 [phone] 14 Apr, 2016 Unspecified abdominal pain R10.9 and Helicobacter pylori ( H. pylori) A04.8 [facility] [place] [id number] [place] [address] Feb, H. pylori infection A04.8 and Abdominal pain R10.9 IMMUNIZATIONS No Known Immunizations SOCIAL HISTORY Never Assessed REASON FOR VISIT Establish Care, PT is here today with concerns with non stop joint pain and lower back pain to the point he cant stand. PT last provider was Courtney Zuniga MA PLAN OF CARE Activity Details Follow Up 2 Weeks Reason: VITAL SIGNS Height 74.5 in 2018-03-29 Weight 224.6 lbs 2018-03-29 Temperature 98.4 degrees Fahrenheit 2018-03-29 Heart Rate 68 bpm 2018-03-29 Respiratory Rate 18 2018-03-29 BMI 28.45 kg/m2 2018-03-29 Blood pressure systolic 128 mmHg 2018-03-29 Blood pressure diastolic 84 mmHg 2018-03-29 MEDICATIONS Medication Instructions Dosage Frequency Start Date End Date Duration Status Aleve 220 MG Orally every 12 hrs 1 tablet as needed 12h Not-Taking Amitriptyline HCl 100 MG Orally Once a day 1 tablet 24h Not-Taking Gabapentin 300 MG Orally Three times a day 1 capsule 8h Not-Taking Omeprazole 20 mg Orally twice a day 1 tablet 12h 14 Apr, 2016 30 day(s ) Not-Taking Sebastian 5-325 MG Orally 3 times a day 1 tablet as needed 8h March, Active Omeprazole 40 MG Orally Once a day 1 capsule 24h Jul, 30 day(s ) Not-Taking Celebrex 200 MG Orally Once a day 1 capsule with food 24h Not- Taking Cyclobenzaprine HCl 5 MG Orally at bedtime 1 tablet as needed Sep, Active Omeprazole 20 mg Orally twice a day 1 capsules 12h Feb, 30 day( s) Not-Taking BC Fast Pain Relief Arthritis 1000-65 MG Orally every 6 hrs 1 packet 6h Not-Taking RESULTS No Results PROCEDURES No Known procedures INSTRUCTIONS MEDICATIONS ADMINISTERED No Known Medications MEDICAL (GENERAL) HISTORY Type Description Date Medical History rheumatoid arthritis Medical History lyme disease Surgical History liver biopsy 12/2016 Hospitalization History Lyme Disease
--- OUTSIDE RECORDS SUMMARY | 2018-11-30 19:59 | XMS REPORT ---
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 Name Role Phone EVA VERNON Unavailable PROBLEMS Type Condition ICD9-CM Code TOS61-WR Code Onset Dates Condition Status SNOMED Code Problem Arthritis M19.90 Active 3050581 Problem Other chronic pain G89.29 Active 98796229 Problem GERD (gastroesophageal reflux disease) K21.9 Active 159930759 ALLERGIES No Known Allergies ENCOUNTERS Encounter Location Date Diagnosis [facility] [address] [address] Apr, Encounter for medication monitoring Z51.81 ; Arthritis M19.90 and Lumbar contusion, initial encounter S30.0XXA [facility] [address] [place] [id number] [place] [address] March, Arthritis M19.90 [facility] [address] [place] [id number] [place] [address] March, [facility] [address] [place] [id number] [place] [address] March, [facility] [address] [place] [id number] [place] [address] March, Arthritis M19.90 [facility] [address] [place] [id number] [place] [address] Feb, Low back pain M54.5 and Other chronic pain G89.29 [facility] [address] [place] [id number] [place] [address] Feb, Low back pain M54.5 and Other chronic pain G89.29 [facility] [address] [place] [id number] [address] 11 Oct, 2017 Acute nasopharyngitis J00 and Acute non-recurrent maxillary sinusitis J01.00 [facility] [address] [place] [id number] [place] [phone] 08 Sep, 2017 Lumbar pain M54.5 [facility] [address] [place] [id number] [place] [phone] 05 Jul, 2017 GERD (gastroesophageal reflux disease) K21.9 [facility] [address] [place], [place] [id number] [place] [address] Nov, Sore throat J02.9 and Pharyngitis, unspecified etiology J02.9 [facility] [address] [place] [id number] [place] [phone] 14 Apr, 2016 Unspecified abdominal pain R10.9 and Helicobacter pylori ( H. pylori) A04.8 [facility] [address] [place] [id number] [place] [address] Feb, H. pylori infection A04.8 and Abdominal pain R10.9 IMMUNIZATIONS No Known Immunizations SOCIAL HISTORY Never Assessed REASON FOR VISIT head and chest congestion, fever. been sick for a week. [email or web address] PLAN OF CARE Activity Details Follow Up prn Reason: VITAL SIGNS Height 75 in 2017-11-08 Weight 221.2 lbs 2017-11-08 Temperature 97.4 degrees Fahrenheit 2017-11-08 Heart Rate 68 bpm 2017-11-08 Respiratory Rate 20 2017-11-08 BMI 27.65 kg/m2 2017-11-08 Blood pressure systolic 136 mmHg 2017-11-08 Blood pressure diastolic 78 mmHg 2017-11-08 MEDICATIONS Medication Instructions Dosage Frequency Start Date End Date Duration Status BC Fast Pain Relief Arthritis 1000-65 MG Orally every 6 hrs 1 packet 6h Not-Taking Omeprazole 20 mg Orally twice a day 1 capsules 12h Feb, 30 day( s) Not-Taking Amitriptyline HCl 100 MG Orally Once a day 1 tablet 24h Active Augmentin 875-125 MG Orally every 12 hrs 1 tablet 12h Oct,Oct 10 day(s) Active Celebrex 200 MG Orally Once a day 1 capsule with food 24h Active Aleve 220 MG Orally every 12 hrs 1 tablet as needed 12h Not-Taking Omeprazole 20 mg Orally twice a day 1 tablet 12h 14 Apr, 2016 30 day(s ) Not-Taking Kerhonkson 5-325 MG Orally every 6 hrs 1 tablet as needed 6h 08 Sep, 2017 Active Omeprazole 40 MG Orally Once a day 1 capsule 24h 05 Jul, 2017 30 day(s ) Active Gabapentin 300 MG Orally Three times a day 1 capsule 8h Active Tessalon Perles 100 MG Orally Three times a day 1 capsule as needed 8h Oct, Oct, 5 days Active Cyclobenzaprine HCl 10 mg Orally 2 times a day 1 tablet as needed 12h Sep, Not-Taking RESULTS No Results PROCEDURES No Known procedures INSTRUCTIONS MEDICATIONS ADMINISTERED No Known Medications MEDICAL (GENERAL) HISTORY Type Description Date Medical History rheumatoid arthritis Medical History lyme disease Surgical History liver biopsy 12/2016 Hospitalization History Lyme Disease
--- OUTSIDE RECORDS SUMMARY | 2018-11-30 19:59 | XMS REPORT ---
Author Author GREER KAUFMAN [facility] Address [address] [place] [address] Phone Unavailable Care Team Providers Care Pharmacy Associate Name Role Phone GREER KAUFMAN Unavailable Unavailable PROBLEMS Type Condition ICD9-CM Code PSC72-FY Code Onset Dates Condition Status SNOMED Code Problem Arthritis M19.90 Active 5727106 Problem Other chronic pain G89.29 Active 15702348 Problem GERD (gastroesophageal reflux disease) K21.9 Active 084973531 ALLERGIES No Known Allergies ENCOUNTERS Encounter Location Date Diagnosis [facility] [address] [address] May, Arthritis M19.90 [facility] [address] [address] Apr, Encounter for medication monitoring Z51.81 ; Arthritis M19.90 and Lumbar contusion, initial encounter S30.0XXA [facility] [address] [address] March, Arthritis M19.90 [facility] [address] [place] [id number] [place] [address] March, [facility] [address] [address] March, [facility] [address] [place] [id number] [place] [address] March, Arthritis M19.90 [facility] [address] [place] [id number] [place] [address] Feb, Low back pain M54.5 and Other chronic pain G89.29 [facility] [address] [address] Feb, Low back pain M54.5 and Other chronic pain G89.29 [facility] [address] [place], [place] [id number] [place] [address] 11 Oct, 2017 Acute nasopharyngitis J00 and Acute non-recurrent maxillary sinusitis J01.00 [facility] [address] [place], [place] [id number] [place] [phone] 08 Sep, 2017 Lumbar pain M54.5 [facility] [address] [place] [id number] [place] [address]676 [phone] 05 Jul, 2017 GERD (gastroesophageal reflux disease) K21.[address] [facility] [address] [place] [address] Nov, Sore throat J02.9 and Pharyngitis, unspecified etiology J02.9 [facility] [place] [id number] [place] [phone] 14 Apr, 2016 Unspecified abdominal pain R10.9 and Helicobacter pylori ( H. pylori) A04.[address] [facility] [address] [place] [id number] [place] [address] Feb, H. pylori infection A04.8 and Abdominal pain R10.9 IMMUNIZATIONS Vaccine Route Administration Date Status TORADOL (IM) 60 MG/2ML (UP TO 15 MG) IM Intramuscular March 07, 2018 Administered SOCIAL HISTORY Never Assessed REASON FOR VISIT lower back pain: was seen on Wednesday, given flexeril, not helping. Has appt with Dr. Bullard in a month wilma stearns, Denies kidney pain or urinary symptoms PLAN OF CARE Activity Details Follow Up prn Reason: VITAL SIGNS Height 75 in 2018-03-07 Weight 221.6 lbs 2018-03-07 Temperature 98.4 degrees Fahrenheit 2018-03-07 Heart Rate 80 bpm 2018-03-07 Respiratory Rate 20 2018-03-07 BMI 27.70 kg/m2 2018-03-07 Blood pressure systolic 122 mmHg 2018-03-07 Blood pressure diastolic 76 mmHg 2018-03-07 MEDICATIONS Medication Instructions Dosage Frequency Start Date End Date Duration Status BC Fast Pain Relief Arthritis 1000-65 MG Orally every 6 hrs 1 packet 6h Not-Taking Stendal 5-325 MG Orally every 6 hrs 1 tablet as needed 6h 08 Sep, 2017 Active Amitriptyline HCl 100 MG Orally Once a day 1 tablet 24h Active Omeprazole 20 mg Orally twice a day 1 capsules 12h 04 Feb, 2016 30 day( s) Not-Taking Gabapentin 300 MG Orally Three times a day 1 capsule 8h Active Aleve 220 MG Orally every 12 hrs 1 tablet as needed 12h Not-Taking Celebrex 200 MG Orally Once a day 1 capsule with food 24h Not- Taking Omeprazole 40 MG Orally Once a day 1 capsule 24h 05 Jul, 2017 30 day(s ) Not-Taking Cyclobenzaprine HCl 10 mg Orally 2 times a day 1 tablet as needed 12h 06 Feb, 2018 16 Feb, 2018 10 days Active Omeprazole 20 mg Orally twice a day 1 tablet 12h Apr, 30 day(s ) Not-Taking Cyclobenzaprine HCl 10 mg Orally 2 times a day 1 tablet as needed 12h Sep, Not-Taking RESULTS No Results PROCEDURES Procedure Date Ordered Result Body Site TORADOL (IM) 60 MG/2ML (UP TO 15 MG) March 07, 2018 THER/PROPH/DIAG INJ, SC/IM March 07, 2018 INSTRUCTIONS MEDICATIONS ADMINISTERED No Known Medications MEDICAL (GENERAL) HISTORY Type Description Date Medical History rheumatoid arthritis Medical History lyme disease Surgical History liver biopsy 12/2016 Hospitalization History Lyme Disease
--- OUTSIDE RECORDS SUMMARY | 2018-11-30 19:59 | XMS REPORT ---
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 Name Role Phone CLAIRE ESCOBEDO Unavailable PROBLEMS Type Condition ICD9-CM Code AAO49-PV Code Onset Dates Condition Status SNOMED Code Problem Arthritis M19.90 Active 3253124 Problem Other chronic pain G89.29 Active 04558907 Problem GERD (gastroesophageal reflux disease) K21.9 Active 129292031 ALLERGIES No Known Allergies ENCOUNTERS Encounter Location Date Diagnosis [facility] [id number] [place] [phone] May, Arthritis M19.90 [facility] [address] [address] Apr, Encounter for medication monitoring Z51.81 ; Arthritis M19.90 and Lumbar contusion, initial encounter S30.0XXA [facility] [id number] [place] [phone] March, Arthritis M19.90 [facility] [id number] [place] [phone] March, [facility] [id number] [place] [phone] March, [facility] [id number] [place] [phone] March, Arthritis M19.90 [facility] [id number] [place] [phone] Feb, Low back pain M54.5 and Other chronic pain G89.29 [facility] [id number] [place] [phone] Feb, Low back pain M54.5 and Other chronic pain G89.29 [facility] [address] [place], [place] [id number] [place] [phone] 11 Oct, 2017 Acute nasopharyngitis J00 and Acute non-recurrent maxillary sinusitis J01.00 [facility] [address] [place] [phone] 08 Sep, 2017 Lumbar pain M54.5 [facility] [address] [place] [phone] 05 Jul, 2017 GERD (gastroesophageal reflux disease) K21.9 [facility] [address] [place] [phone] 19 Nov, 2016 Sore throat J02.9 and Pharyngitis, unspecified etiology J02.9 [facility] [address] [phone] 14 Apr, 2016 Unspecified abdominal pain R10.9 and Helicobacter pylori ( H. pylori) A04.8 [facility] [address] [place] [phone] 04 Feb, 2016 H. pylori infection A04.8 and Abdominal pain R10.9 IMMUNIZATIONS No Known Immunizations SOCIAL HISTORY Never Assessed REASON FOR VISIT chronic lower back pain. pt reports arthritis in his spine. has gotten worse the past 2 days. marija PLAN OF CARE Activity Details Follow Up prn Reason: VITAL SIGNS Height 75 in 2018-03-04 Weight 221.6 lbs 2018-03-04 Temperature 97.6 degrees Fahrenheit 2018-03-04 Heart Rate 74 bpm 2018-03-04 Respiratory Rate 20 2018-03-04 BMI 27.70 kg/m2 2018-03-04 Blood pressure systolic 132 mmHg 2018-03-04 Blood pressure diastolic 82 mmHg 2018-03-04 MEDICATIONS Medication Instructions Dosage Frequency Start Date End Date Duration Status Aleve 220 MG Orally every 12 hrs 1 tablet as needed 12h Not-Taking BC Fast Pain Relief Arthritis 1000-65 MG Orally every 6 hrs 1 packet 6h Not-Taking Cyclobenzaprine HCl 10 mg Orally 2 times a day 1 tablet as needed 12h 08 Sep, 2017 Not-Taking Omeprazole 40 MG Orally Once a day [...] times a day 1 capsule 8h Active Celebrex 200 MG Orally Once a day 1 capsule with food 24h Not- Taking Omeprazole 20 mg Orally twice a day 1 tablet 12h Apr, 30 day(s ) Not-Taking Amitriptyline HCl 100 MG Orally Once a day 1 tablet 24h Active Ray[place]ham 5-325 MG Orally every 6 hrs 1 tablet as needed 6h Sep, Active RESULTS No Results PROCEDURES No Known procedures INSTRUCTIONS MEDICATIONS ADMINISTERED No Known Medications MEDICAL (GENERAL) HISTORY Type Description Date Medical History rheumatoid arthritis Medical History lyme disease Surgical History liver biopsy 12/2016 Hospitalization History Lyme Disease
--- NOTE | 2018-11-30 20:13 | ED General ---
General Chief Complaint: General Problems/Pain Stated Complaint: BLOOD IN STOOL, LEFT FOOT PAIN Source of Information: Patient Exam Limitations: No Limitations History of Present Illness Date Seen by Provider: Nov 30, 2018 Time Seen by Provider: 20:07 Initial Comments To ER per private vehicle with reports of blood in his stool and occasionally bright red blood with wiping after a bowel movement. This is cycle consultant in volume today than usual today and has been present intermittently for 4 years. He states he is just tired of dealing with it. Denies any abdominal he does have a history of hepatitis C. He does report that he is on opiates for chronic pain and so his stools are hard and constipated quite frequently and occasionally has bowel movements are painful and he has a burning rectal pain. He's never had a colonoscopy. He also has some pain to the left heel for 2-3 days without known cause. He states that he works at [employer] and wears steel toed boots. Does not recall any particular injury. Timing/Duration: 1-2 Days Severity: Moderate Allergies and Home Medications Allergies Coded Allergies: No Known Drug Allergies (Unverified , 01/12/17) Home Medications Amitriptyline HCl 25 Mg Tablet, 25 MG PO HS, (Reported) Celecoxib 50 Mg Capsule, 50 MG PO BID, (Reported) Gabapentin 600 Mg Tablet, 600 MG PO DAILY, (Reported) Hydrocodone Bit/Acetaminophen 1 Tab Tab, 2 EACH PO Q4H Prescribed by: MARS KAM on 04/26/182045 Methocarbamol 500 Mg Tablet, 500 MG PO QID Prescribed by: MARS KAM on 04/26/182044 Methylprednisolone 4 Mg Tab.ds.pk, 4 MG PO UD Prescribed by: MARS KAM on 04/26/182044 Naproxen 500 Mg Tablet, 500 MG PO BID Prescribed by: LUIS ALBERTO GAVIN on 04/21/18 134 Tramadol HCl 50 Mg Tablet, 50 MG PO Q4H Prescribed by: MARS KAM on 04/26/182044 Patient Home Medication List Home Medication List Reviewed: Yes Review of Systems Review of Systems Constitutional: see HPI EENTM: see HPI Respiratory: no symptoms reported Cardiovascular: no symptoms reported Genitourinary: no symptoms reported Musculoskeletal: see HPI Skin: no symptoms reported Psychiatric/Neurological: No Symptoms Reported Hematologic/Lymphatic: No Symptoms Reported Immunological/Allergic: no symptoms reported Past Ppfgfdp-Xvucrv-Heivks Hx Patient Social History Type Used: Cigarettes 2nd Hand Smoke Exposure: No Recent Foreign Travel: No Contact w/Someone Who Travel: No Recent Hopitalizations: No Seasonal Allergies Seasonal Allergies: Yes Past Medical History Surgeries: Yes (LIVER BX) Respiratory: No Cardiac: No Neurological: No Genitourinary: No Gastrointestinal: Yes (HEPATITIS C) Hepatitis Musculoskeletal: Yes Chronic Back Pain Endocrine: No HEENT: No Cancer: No Psychosocial: No Integumentary: No Blood Disorders: Yes (HEP C) Physical Exam Vital Signs Vital Signs - First Documented 11/30/18 19:59 Temp 96.9 Pulse 90 Resp 20 B/P (MAP) 143/94 (110) Pulse Ox 98 Capillary Refill : Height, Weight, BMI Height: 6'3.00" Weight: 220lbs. 0.0oz. 99.675609ln; 26.3 BMI Method:Stated General Appearance: No Apparent Distress, WD/WN Eyes: Bilateral Eye Normal Inspection, Bilateral Eye PERRL, Bilateral Eye EOMI HEENT: PERRL/EOMI, TMs Normal Neck: Full Range of Motion, Normal Inspection Respiratory: No Accessory Muscle Use, No Respiratory Distress Gastrointestinal: Normal Bowel Sounds, Non Tender, Soft Extremity: Normal Capillary Refill, Other (tenderness to palpation at the anteromedial aspect of the plantar surface left calcaneus. There is no wound ecchymosis swelling or erythema.) Neurologic/Psychiatric: Alert, Oriented x3, No Motor/Sensory Deficits Skin: Normal Color, Warm/Dry Progress/Results/Core Measures Suspected Sepsis SIRS Temperature: Pulse: Respiratory Rate: Laboratory Tests 11/30/18 20:15: White Blood Count 9.0 Blood Pressure / Mean: Laboratory Tests 11/30/18 20:15: Platelet Count 191 Results/Orders Lab Results Laboratory Tests Test 11/30/18 20:15 Range/Units White Blood Count 9.0 4.3-11.0 10^3/uL Red Blood Count 5.12 4.35-5.85 10^6/uL Hemoglobin 16.1 13.3-17.7 G/DL Hematocrit 45 40-54 % Mean Corpuscular Volume 88 80-99 FL Mean Corpuscular Hemoglobin 31 25-34 PG Mean Corpuscular Hemoglobin Concent 36 32-36 G/DL Red Cell Distribution Width 12.9 10.0-14.5 % Platelet Count 191 130-400 10^3/uL Mean Platelet Volume 10.7 H 7.4-10.4 FL Neutrophils (%) (Auto) 52 42-75 % Lymphocytes (%) (Auto) 41 12-44 % Monocytes (%) (Auto) 6 0-12 % Eosinophils (%) (Auto) 2 0-10 % Basophils (%) (Auto) 0 0-10 % Neutrophils # (Auto) 4.7 1.8-7.8 X 10^3 Lymphocytes # (Auto) 3.6 1.0-4.0 X 10^3 Monocytes # (Auto) 0.5 0.0-1.0 X 10^3 Eosinophils # (Auto) 0.1 0.0-0.3 10^3/uL Basophils # (Auto) 0.0 0.0-0.1 10^3/uL My Orders Orders - LUIS ALBERTO GAVIN APRN Cbc With Automated Diff (11/30/18 20:06) Heel, Left, 2 View (11/30/18 20:06) Ketorolac Injection (Toradol Injection) (11/30/18 20:15) Medications Given in ED Current Medications Medications Dose Ordered Sig/Estefany Route Start Time Stop Time Status Last Admin Dose Admin Ketorolac Tromethamine 60 mg ONCE ONCE IM 11/30/18 20:15 11/30/18 20:16 DC 11/30/18 20:14 60 MG Vital Signs/I&O 11/30/18 19:59 Temp 96.9 Pulse 90 Resp 20 B/P (MAP) 143/94 (110) Pulse Ox 98 Capillary Refill : Departure Impression Primary Impression: Hemorrhoid Qualified Codes: K64.9 - Unspecified hemorrhoids Additional Impression: Heel pain Disposition: HOME, SELF-CARE Condition: Stable Departure-Patient Inst. Decision time for Depature: 20:12 Referrals: RG AYALA DPM, ERIC B DO DUNBAR, BRETT D DO HUERTER, DAVID F MD (PCP/Family) Primary Care Physician FRANCISCO ADAIR MD, TAKAAKI MD Patient Instructions: Heel Pain (Caused by Plantar Fasciitis), Hemorrhoids, Plantar Fasciitis Exercises Add. Discharge Instructions: 1. Call a surgeon of your choosing to follow up on the rectal bleeding. You do need to have colonoscopy. Call a surgeon of your choosing tomorrow to make an appointment to be seen within the next few weeks. A list of local surgeons was provided to you. Go home and elevate your foot. Do your best to stay off of it. Buy a soft insert with arch support for your shoes ([employer]/online) .Fill a 2 liter bottle of pop with water and freeze then roll your foot back and forth over this a few times a day at 10-20minute intervals. If pain fails to improve, follow up with Dr Ayala. . All discharge instructions reviewed with patient and/or family. Voiced understanding. Work/School Note: Work Release Form Date Seen in the Emergency Department: Nov 30, 2018 Return to Work: Dec 02, 2018 LUIS ALBERTO GAVIN APRN Nov 30, 2018 20:13
[2018-11-30] MEDS ORDERED: KETOROLAC 60 MG/2 ML VIAL IM ONE (20:15)
[2018-11-30 20:21] LABS: BASOPHILS % (AUTO) 0 % (0-10); EOSINOPHILS # (AUTO) 0.1 10^3/uL (0.0-0.3); EOSINOPHILS % (AUTO) 2 % (0-10); HEMATOCRIT 45 % (40-54); HEMOGLOBIN 16.1 G/DL (13.3-17.7); LYMPHOCYTES # (AUTO) 3.6 X 10^3 (1.0-4.0); LYMPHOCYTES % (AUTO) 41 % (12-44); MEAN CORPUSCULAR HEMOGLOBIN 31 PG (25-34); MEAN CORPUSCULAR HGB CONC 36 G/DL (32-36); MEAN CORPUSCULAR VOLUME 88 FL (80-99); MEAN PLATELET VOLUME 10.7 FL (7.4-10.4); MONOCYTES # (AUTO) 0.5 X 10^3 (0.0-1.0); MONOCYTES % (AUTO) 6 % (0-12); NEUTROPHILS # (AUTO) 4.7 X 10^3 (1.8-7.8); NEUTROPHILS % (AUTO) 52 % (42-75); PLATELET COUNT 191 10^3/uL (130-400); RED BLOOD COUNT 5.12 10^6/uL (4.35-5.85); RED CELL DISTRIBUTION WIDTH 12.9 % (10.0-14.5)
[2018-11-30 20:48] VITALS: BP 143/94
--- NOTE | 2018-11-30 21:15 | Diagnostic Imaging Report ---
INDICATION: Pain in left heel x2 weeks, no known injury. TECHNIQUE: Two views left calcaneus. CORRELATION STUDY: None. FINDINGS: Calcaneus is intact. There is a tiny plantar calcaneal spur formation. Subtalar joint appears unremarkable. IMPRESSION: 1. Negative for acute bony abnormality about the left heel. Tiny spur. Dictated by: Dictated on workstation # [id number]
== END 2018-11-30 20:48 | disposition home or self-care (01) ==
LOC: EDUNIT# 19:53 → ER 19:55
DX: K64.9 Unspecified hemorrhoids (principal); M79.672 Pain in left foot; B19.20 Unspecified viral hepatitis C without hepatic coma; Z79.52 Long term (current) use of systemic steroids
CPT/HCPCS: 36415; 73650; 85025; 96372

== ENCOUNTER 2019-04-26 20:24 | Emergency (ER) | payer BC, OTHER ==
[~2019-04-26] VITALS: Ht 190.5 cm; Wt 86.2 kg
[~2019-04-26 20:24] MED LIST changes: -GABA600T2 PO; +GBPN600T PO
[2019-04-26] MEDS ORDERED: NS IV 1000 ML 1,000 ML IV ONE (20:36)
[2019-04-26 20:38] VITALS: BP_SYST 112; BP_SYST 126; BP_SYST 127; BP_DIAS 77; BP_DIAS 79; BP_DIAS 85
[2019-04-26 20:54] LABS: BASOPHILS % (AUTO) 0 % (0-10); EOSINOPHILS # (AUTO) 0.1 10^3/uL (0.0-0.3); EOSINOPHILS % (AUTO) 1 % (0-10); HEMATOCRIT 45 % (40-54); HEMOGLOBIN 16.3 G/DL (13.3-17.7); LYMPHOCYTES # (AUTO) 2.3 X 10^3 (1.0-4.0); LYMPHOCYTES % (AUTO) 31 % (12-44); MEAN CORPUSCULAR HEMOGLOBIN 31 PG (25-34); MEAN CORPUSCULAR HGB CONC 36 G/DL (32-36); MEAN CORPUSCULAR VOLUME 87 FL (80-99); MEAN PLATELET VOLUME 10.5 FL (7.4-10.4); MONOCYTES # (AUTO) 0.5 X 10^3 (0.0-1.0); MONOCYTES % (AUTO) 6 % (0-12); NEUTROPHILS # (AUTO) 4.6 X 10^3 (1.8-7.8); NEUTROPHILS % (AUTO) 62 % (42-75); PLATELET COUNT 213 10^3/uL (130-400); RED CELL DISTRIBUTION WIDTH 12.3 % (10.0-14.5); WHITE BLOOD COUNT 7.5 10^3/uL (4.3-11.0)
--- NOTE | 2019-04-26 21:02 | Diagnostic Imaging Report ---
INDICATION: Dizziness, lightheadedness and syncope. FINDINGS: The heart size, mediastinal configuration, and pulmonary vascularity are within normal limits. There is no pleural effusion, pneumothorax, or pneumonia. The osseous structures are unremarkable. IMPRESSION: No acute cardiopulmonary abnormality. Dictated by: Dictated on workstation # [id number]
[2019-04-26 21:17] LABS: ALANINE AMINOTRANSFERASE 18 U/L (0-55); ALBUMIN 4.4 GM/DL (3.2-4.5); ALKALINE PHOSPHATASE 67 U/L (40-136); BILIRUBIN,TOTAL 1.8 MG/DL (0.1-1.0); BUN/CREATININE RATIO 13; CALCIUM 9.5 MG/DL (8.5-10.1); CARBON DIOXIDE 25 MMOL/L (21-32); CHLORIDE 105 MMOL/L (98-107); CREATINE KINASE 64 U/L (30-200); CREATININE SERUM 1.33 MG/DL (0.60-1.30); GFR ESTIMATED 57; GLUCOSE 79 MG/DL (70-105); MAGNESIUM 2.1 MG/DL (1.8-2.4); POTASSIUM 3.4 MMOL/L (3.6-5.0); SODIUM 139 MMOL/L (135-145); TOTAL PROTEIN 6.9 GM/DL (6.4-8.2)
[2019-04-26 21:33] LABS: TSH (THYROID ANALYZER) 0.34 UIU/ML (0.35-4.94)
[2019-04-26 21:54] LABS: BILIRUBIN,URINE NEGATIVE (NEGATIVE); CLARITY,URINE CLEAR; COLOR,URINE YELLOW; GLUCOSE, URINE (UA) NEGATIVE (NEGATIVE); KETONES,URINE NEGATIVE (NEGATIVE); LEUKOCYTE ESTERASE ,URINE NEGATIVE (NEGATIVE); NITRITE,URINE NEGATIVE (NEGATIVE); PH,URINE 7 (5-9); PROTEIN,URINE NEGATIVE (NEGATIVE); UROBILINOGEN,URINE NORMAL (NORMAL)
[2019-04-26 22:03] LABS: BACTERIA,URINE NEGATIVE /HPF; SQUAMOUS EPITHELIAL CELL,UR RARE /HPF
--- NOTE | 2019-04-26 22:03 | ED Syncope ---
General Chief Complaint: Dizziness/Syncope Stated Complaint: DIZZY Nursing Triage Note: Pt ambulatory to ED. Pt c/o dizziness for a couple of days and a syncopal episode at work. Pt c/o difficulty breathing, is pale, and reports losing 60 pounds in approximately 6 months. Pt denies chest pain. Source of Information: Patient, Family Exam Limitations: No Limitations History of Present Illness Date Seen by Provider: April 26, 2019 Time Seen by Provider: 20:30 Initial Comments This 48-year-old man presents to the emergency room with complaints of extreme fatigue, lightheadedness, and dizziness upon standing up for the past 2 nights. Last night at work he had a syncopal episode. He has had associated shortness of air. His states a loss of 60 pounds over the last 6 months. 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 Last couple nights he came home early from work because of exhaustion and the syncopal episode. He denies any alcohol or drug use. He does smoke. He denies any chest pain with these episodes. He does drink an excessive amount of energy drinks, up to 8 Monster drinks per day. Patient reports being under an enormous amount of stress and pressure with family and work responsibilities. Allergies and Home Medications Allergies Coded Allergies: No Known Drug Allergies (Unverified , 01/12/17) Home Medications Amitriptyline HCl 25 Mg Tablet, 25 MG PO HS, (Reported) Celecoxib 50 Mg Capsule, 50 MG PO BID, (Reported) Gabapentin 600 Mg Tablet, 600 MG PO DAILY, (Reported) Hydrocodone Bit/Acetaminophen 1 Tab Tab, 2 EACH PO Q4H Prescribed by: MARS KAM on 04/26/182045 Methocarbamol 500 Mg Tablet, 500 MG PO QID Prescribed by: MARS KAM on 04/26/182044 Methylprednisolone 4 Mg Tab.ds.pk, 4 MG PO UD Prescribed by: MARS KAM on 04/26/182044 Naproxen 500 Mg Tablet, 500 MG PO BID Prescribed by: LUIS ALBERTO GAVIN on 04/21/18 134 Tramadol HCl 50 Mg Tablet, 50 MG PO Q4H Prescribed by: MARS KAM on 04/26/182044 Patient Home Medication List Home Medication List Reviewed: Yes Review of Systems Constitutional: see HPI EENTM: no symptoms reported Respiratory: see HPI Cardiovascular: see HPI Gastrointestinal: no symptoms reported Genitourinary: no symptoms reported Musculoskeletal: no symptoms reported Skin: no symptoms reported Psychiatric/Neurological: No Symptoms Reported Past Bixsnjf-Jbpnya-Lxsoqv Hx Patient Social History Alcohol Use: Denies Use Recreational Drug Use: No Smoking Status: Current Everyday Smoker Type Used: Cigarettes 2nd Hand Smoke Exposure: Yes Recent Foreign Travel: No Contact w/Someone Who Travel: No Recent Infectious Disease Expo: No Recent Hopitalizations: No Seasonal Allergies Seasonal Allergies: Yes Past Medical History Surgeries: Yes (LIVER BX) Respiratory: No Cardiac: No Neurological: No Genitourinary: No Gastrointestinal: Yes (HEPATITIS C) Hepatitis Musculoskeletal: Yes Chronic Back Pain Endocrine: No HEENT: No Cancer: No Psychosocial: No Integumentary: No Blood Disorders: Yes (HEP C) Physical Exam Vital Signs Vital Signs - First Documented 04/26/19 20:32 Temp 97.6 Pulse 94 Resp 14 B/P (MAP) 135/113 (120) Pulse Ox 98 O2 Delivery Room Air Capillary Refill : Less Than 3 Seconds Height, Weight, BMI Height: 6'3.00" Weight: 190lbs. 0oz. 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 Norm as Tested, Other (anxious) Cranial Nerves: Normal Hearing, Normal Speech, PERRL Coordination/Gait: Normal Gait Motor/Sensory: No Motor Deficit, No Sensory Deficit Skin: Normal Color, Warm/Dry Progress/Results/Core Measures Results/Orders Lab Results Laboratory Tests Test 04/26/19 20:45 04/26/19 21:45 Range/Units White Blood Count 7.5 4.3-11.0 10^3/uL Red Blood Count 5.20 4.35-5.85 10^6/uL Hemoglobin 16.3 13.3-17.7 G/DL Hematocrit 45 40-54 % Mean Corpuscular Volume 87 80-99 FL Mean Corpuscular Hemoglobin 31 25-34 PG Mean Corpuscular Hemoglobin Concent 36 32-36 G/DL Red Cell Distribution Width 12.3 10.0-14.5 % Platelet Count 213 130-400 10^3/uL Mean Platelet Volume 10.5 H 7.4-10.4 FL Neutrophils (%) (Auto) 62 42-75 % Lymphocytes (%) (Auto) 31 12-44 % Monocytes (%) (Auto) 6 0-12 % Eosinophils (%) (Auto) 1 0-10 % Basophils (%) (Auto) 0 0-10 % Neutrophils # (Auto) 4.6 1.8-7.8 X 10^3 Lymphocytes # (Auto) 2.3 1.0-4.0 X 10^3 Monocytes # (Auto) 0.5 0.0-1.0 X 10^3 Eosinophils # (Auto) 0.1 0.0-0.3 10^3/uL Basophils # (Auto) 0.0 0.0-0.1 10^3/uL D-Dimer 0.33 0.00-0.49 UG/ML Sodium Level 139 135-145 MMOL/L Potassium Level 3.4 L 3.6-5.0 MMOL/L Chloride Level 105 98-107 MMOL/L Carbon Dioxide Level 25 21-32 MMOL/L Anion Gap 9 5-14 MMOL/L Blood Urea Nitrogen 17 7-18 MG/DL Creatinine 1.33 H 0.60-1.30 MG/DL Estimat Glomerular Filtration Rate 57 BUN/Creatinine Ratio 13 Glucose Level 79 70-105 MG/DL Calcium Level 9.5 8.5-10.1 MG/DL Corrected Calcium 9.2 8.5-10.1 MG/DL Magnesium Level 2.1 1.8-2.4 MG/DL Total Bilirubin 1.8 H 0.1-1.0 MG/DL Aspartate Amino Transf (AST/SGOT) 17 5-34 U/L Alanine Aminotransferase (ALT/SGPT) 18 0-55 U/L Alkaline Phosphatase 67 40-136 U/L Total Creatine Kinase 64 30-200 U/L Troponin I < 0.028 <0.028 NG/ML Total Protein 6.9 6.4-8.2 GM/DL Albumin 4.4 3.2-4.5 GM/DL Free Thyroxine 1.11 0.70-1.48 NG/DL TSH [place] Testing 0.34 L 0.35-4.94 UIU/ML Serum Alcohol < 10 <10 MG/DL Urine Color YELLOW Urine Clarity CLEAR Urine pH 7 5-9 Urine Specific [place] 1.005 L 1.016-1.022 Urine Protein NEGATIVE NEGATIVE Urine Glucose (UA) NEGATIVE NEGATIVE Urine Ketones NEGATIVE NEGATIVE Urine Nitrite NEGATIVE NEGATIVE Urine Bilirubin NEGATIVE NEGATIVE Urine Urobilinogen NORMAL NORMAL MG/DL Urine Leukocyte Esterase NEGATIVE NEGATIVE Urine RBC (Auto) NEGATIVE NEGATIVE Urine RBC NONE /HPF Urine WBC NONE /HPF Urine Squamous Epithelial Cells RARE /HPF Urine Crystals NONE /LPF Urine Bacteria NEGATIVE /HPF Urine Casts NONE /LPF Urine Mucus NEGATIVE /LPF Urine Culture Indicated NO Urine Opiates Screen NEGATIVE NEGATIVE Urine Oxycodone Screen NEGATIVE NEGATIVE Urine Methadone Screen NEGATIVE NEGATIVE Urine Propoxyphene Screen NEGATIVE NEGATIVE Urine Barbiturates Screen NEGATIVE NEGATIVE Ur Tricyclic Antidepressants Screen NEGATIVE NEGATIVE Urine Phencyclidine Screen NEGATIVE NEGATIVE Urine Amphetamines Screen POSITIVE H NEGATIVE Urine Methamphetamines Screen POSITIVE H NEGATIVE Urine Benzodiazepines Screen NEGATIVE NEGATIVE Urine Cocaine Screen NEGATIVE NEGATIVE Urine Cannabinoids Screen NEGATIVE NEGATIVE My Orders Orders - JOEL REYNOSO MD Chest Pa/Lat (2 View) (04/26/19 20:36) Alcohol (04/26/19 20:36) Cbc With Automated Diff (04/26/19 20:36) Comprehensive Metabolic Panel (04/26/19 20:36) Fibrin Degradation Products (04/26/19 20:36) Drug Screen Stat (Urine) (04/26/19 20:36) Magnesium (04/26/19 20:36) Thyroid Analyzer (04/26/19 20:36) Troponin I (04/26/19 20:36) Ua Culture If Indicated (04/26/19 20:36) Ed Iv/Invasive Line Start (04/26/19 20:36) Ekg Tracing (04/26/19 20:36) Monitor-Rhythm Ecg Trace Only (04/26/19 20:36) Ed Iv/Invasive Line Start (04/26/19 20:36) Ns Iv 1000 Ml (Sodium Chloride 0.9%) (04/26/19 20:36) Orthostatic Vital Signs (Adult (04/26/19 20:36) Creatine Kinase (04/26/19 20:45) Free T4 (Free Thyroxine) (04/26/19 20:45) Medications Given in ED Current Medications Medications Dose Ordered Sig/Estefany Route Start Time Stop Time Status Last Admin Dose Admin Sodium Chloride 1,000 ml @ 0 mls/hr Q0M ONCE IV 04/26/19 20:36 04/26/19 20:39 DC 04/26/19 20:56 1,000 MLS/HR Vital Signs/I&O 04/26/19 04/26/19 04/26/19 20:32 20:38 22:40 Temp 97.6 97.6 Pulse 94 79 67 93 115 Resp 14 14 B/P (MAP) 135/113 (120) 127/79 (95) 118/93 (101) 126/85 (99) 112/77 (89) Pulse Ox 98 98 O2 Delivery Room Air Room Air Blood Pressure Mean: 89 Progress Progress Note : Time: 22:33 Progress Note Patient received a liter of IV fluid and felt much better after that. Workup was relatively unremarkable. He did of a positive urine drug screen and admitted to using methamphetamines April 20 through April 22. I had offered to discuss his case with Dr. Mendoza to help facilitate follow-up. However, he declined to have me do this because he does not want his methamphetamine use shared with his primary care team. He also does not want this note copied to the clinic. Patient was dismissed in stable condition. There were no arrhythmias during his ER stay and his symptoms improved with hydration. Initial ECG Impression Date: April 26, 2019 Initial ECG Impression Time: 21:06 Initial ECG Rate: 74 Initial ECG Rhythm: Normal Sinus Initial ECG Intervals: Normal Initial ECG Impression: Normal Comment Normal sinus rhythm with no ST elevation or depression. No abnormal intervals or axis deviation. Diagnostic Imaging Diagonstic Imaging: Xray Plain Films/CT/US/NM/MRI: chest Comments Chest x-ray viewed by me and report reviewed. See report below: NAME: DARRELL KLEIN [facility] REC#: [id number] PT STATUS: REG ER : 1970 PHYSICIAN: JOEL REYNOSO MD ADMIT DATE: 04/26/19/ER Signed Date of Exam: 04/26/19 CHEST PA/LAT (2 VIEW) INDICATION: Dizziness, lightheadedness and syncope. FINDINGS: The heart size, mediastinal configuration, and pulmonary vascularity are within normal limits. There is no pleural effusion, pneumothorax, or pneumonia. The osseous structures are unremarkable. IMPRESSION: No acute cardiopulmonary abnormality. Dictated by: Dictated on workstation # [id number] Dict: 04/26/192057 Trans: 04/26/192133 Interpreted by: BAKARI KIMBALL MD Electronically signed by: BAKARI KIMBALL MD 04/26/192133 Departure Impression Primary Impression: Syncope and collapse Additional Impressions: Hypovolemia Substance abuse Disposition: HOME, SELF-CARE Condition: Improved Departure-Patient Inst. Decision time for Depature: 22:31 Referrals: RG MORELOS MD (PCP/Family) Primary Care Physician Patient Instructions: Syncope (Fainting) Add. Discharge Instructions: Follow-up with your primary care provider soon as possible. I encourage you to discuss further workup which might include referral to a vacuum drum drier operator, cardiac monitoring, and/or stress testing. Drink plenty of non-caffeinated clear liquids. Start tapering down on your caffeine consumption. Avoid use of any illicit substances, prescription or otherwise. Return to the emergency room if you have any worsening symptoms. All discharge instructions reviewed with patient and/or family. Voiced understanding. JOEL REYNOSO MD April 26, 2019 22:03
[2019-04-26 22:06] LABS: AMPHETAMINE SCREEN, URINE POSITIVE (NEGATIVE); BARBITURATE SCREEN URINE NEGATIVE (NEGATIVE); BENZODIAZEPINES SCREEN URINE NEGATIVE (NEGATIVE); CANNABINOID SCREEN, URINE NEGATIVE (NEGATIVE); COCAINE SCREEN URINE NEGATIVE (NEGATIVE); METHADONE STAT NEGATIVE (NEGATIVE); METHAMPHETAMINE SCREEN URINE S POSITIVE (NEGATIVE); OPIATE SCREEN URINE NEGATIVE (NEGATIVE); OXYCODONE STAT NEGATIVE (NEGATIVE); PROPOXYPHENE STAT NEGATIVE (NEGATIVE); TRICYCLIC ANTIDEPRESSANTS SCRE NEGATIVE (NEGATIVE)
[2019-04-26 22:06] LABS: FREE T4 (FREE THYROXINE) 1.11 NG/DL (0.70-1.48)
[2019-04-26 22:40] VITALS: BP 118/93
== END 2019-04-26 22:40 | disposition home or self-care (01) ==
LOC: EDUNIT# 20:24 → ER 20:25
DX: R55 Syncope and collapse (principal); E86.1 Hypovolemia; F19.10 Other psychoactive substance abuse, uncomplicated; B19.20 Unspecified viral hepatitis C without hepatic coma; F17.210 Nicotine dependence, cigarettes, uncomplicated; Z79.52 Long term (current) use of systemic steroids
CPT/HCPCS: 36415; 71046; 80053; 80306; 80320; 81000; 82550; 83735; 84439; 84443; 84484; 85025; 85379; 93005; 93041; 96360